=== PATIENT | male | born 1960 | race African-American/Black ===

== ENCOUNTER → 2016-12-11 | Outpatient (CLI) | payer MEDICAID | LOC: RAD 13:22 | PROVIDERS: ATTEND Internal Medicine Medical Oncology | DX: C34.91 Malignant neoplasm of unspecified part of right bronchus or lung (principal) | CPT/HCPCS: 71260 ==

== ENCOUNTER → 2017-01-28 | Outpatient (CLI) | payer MEDICAID | LOC: RAD 08:02 | PROVIDERS: ATTEND Internal Medicine Medical Oncology | DX: C34.91 Malignant neoplasm of unspecified part of right bronchus or lung (principal) | CPT/HCPCS: 71020 ==

== ENCOUNTER → 2017-02-04 | Outpatient (CLI) | payer MEDICAID | LOC: SP 13:14 | PROVIDERS: ATTEND Internal Medicine Medical Oncology | DX: M79.601 Pain in right arm (principal); M25.421 Effusion, right elbow | CPT/HCPCS: 93971 ==

== ENCOUNTER 2017-03-04 11:49 | Inpatient (IN) | payer MEDICAID ==
--- NOTE | 2017-03-04 13:59 | ER Document Report ---
ED Medical Screen (RME) - General Chief Complaint: Hand Swelling Stated Complaint: RIGHT HAND/ARM SWELLING Mode of Arrival: Wheelchair Information source: Patient, Relative TRAVEL OUTSIDE OF THE [place] IN LAST 30 DAYS: No - HPI Onset: Other - 1 month, worse 2 d ago Onset/Duration: Gradual Quality of pain: Achy Severity: Moderate Associated Symptoms: denies: Chills, Fever Exacerbated by: Denies Relieved by: Denies Similar symptoms previously: No Recently seen / treated by doctor: Yes - dr. chase, today - Related Data Smoking: Cigarettes Frequency of alcohol use: None Drug Abuse: None Allergies/Adverse Reactions: Penicillins Adverse Reaction (Verified 03/04/17 12:23) Past Medical History - General Information source: Patient, Relative - Social History Cigarette use (# per day): Yes Chew tobacco use (# tins/day): No Frequency of alcohol use: None Drug Abuse: None Lives with: Family Family history: Reviewed & Not Pertinent - Past Medical History Cardiac Medical History: Reports: Hx Hypertension Denies: Hx Coronary Artery Disease, Hx Heart Attack Pulmonary Medical History: Reports: Hx Bronchitis, Hx COPD Denies: Hx Asthma, Hx Pneumonia Neurological Medical History: Denies: Hx Cerebrovascular Accident, Hx Seizures Renal/ Medical History: Denies: Hx Benign Prostatic Hyperplasia, Hx End Stage Renal Disease, Hx Kidney Stones, Hx Peritoneal Dialysis Malignancy Medical History: Reports Hx Lung Cancer GI Medical History: Reports: Hx Gastroesophageal Reflux Disease. Denies: Hx Cirrhosis, Hx Ulcer Musculoskeltal Medical History: Reports Hx Arthritis, Denies Hx Multiple Sclerosis, Reports Hx Musculoskeletal Trauma Psychiatric Medical History: Denies: Hx Bipolar Disorder, Hx Depression, Hx Schizophrenia - Immunizations Hx Diphtheria, Pertussis, Tetanus Vaccination: No Review of Systems - Review of Systems Constitutional: Weakness EENT: No symptoms reported Cardiovascular: No symptoms reported, Edema Respiratory: Cough, Short of breath Gastrointestinal: No symptoms reported Musculoskeletal: No symptoms reported Skin: No symptoms reported Neurological/Psychological: No symptoms reported Physical Exam - Vital signs Vitals: Temp Pulse Resp BP Pulse Ox 97.6 F 131 H 20 126/74 H 96 03/04/17 12:26 03/04/17 12:26 03/04/17 12:26 03/04/17 12:26 03/04/17 12:26 Interpretation: Tachycardic. No: Tachypneic, Febrile - Extremities General upper extremity: No: Normal inspection - moderate edema r. upper extrem. Course - Vital Signs Vital signs: Temp Pulse Resp BP Pulse Ox 97.6 F 131 H 20 126/74 H 96 03/04/17 12:26 03/04/17 12:26 03/04/17 12:26 03/04/17 12:26 03/04/17 12:26
[2017-03-04 14:36] LABS: ABSOLUTE LYMPHOCYTES (AUTO) 0.5 10^3/uL (0.5-4.7); ABSOLUTE MONOCYTES (AUTO) 0.6 10^3/uL (0.1-1.4); BASOPHILS % (AUTO) 0.3 % (0-2); HEMATOCRIT 24.8 % (37.9-51.0); HEMOGLOBIN 8.4 g/dL (13.5-17.0); HGB HCT DIFFERENCE 0.4; LYMPHOCYTES % (AUTO) 6.9 % (13-45); MEAN CORPUSCULAR HEMOGLOBIN 30.7 pg (27.0-33.4); MEAN CORPUSCULAR HGB CONC 33.8 g/dL (32.0-36.0); MEAN CORPUSCULAR VOLUME 91 fl (80-97); RED BLOOD COUNT 2.73 10^6/uL (4.35-5.55); RED CELL DISTRIBUTION WIDTH 21.2 % (11.5-14.0); SEGMENTED NEUTROPHILS % (AUTO) 83.8 % (42-78); WHITE BLOOD COUNT 7.1 10^3/uL (4.0-10.5)
[2017-03-04 14:54] LABS: ALANINE AMINOTRANSFERASE 34 U/L (21-72); ALBUMIN 2.5 g/dL (3.5-5.0); ALKALINE PHOSPHATASE 152 U/L (38-126); ANION GAP 11 (5-19); ASPARTATE AMINO TRANSFERASE 38 U/L (17-59); BILIRUBIN,DIRECT 0.5 mg/dL (0.0-0.4); BILIRUBIN,TOTAL 1.2 mg/dL (0.2-1.3); BLOOD UREA NITROGEN 17 mg/dL (7-20); CALCIUM 9.8 mg/dL (8.4-10.2); CARBON DIOXIDE 15 mmol/L (22-30); CHLORIDE 109 mmol/L (98-107); CREATININE RESULT 1.27 mg/dL (0.52-1.25); GLUCOSE 112 mg/dL (75-110); POTASSIUM 3.6 mmol/L (3.6-5.0); SODIUM 135.3 mmol/L (137-145)
--- NOTE | 2017-03-04 17:03 | ER Document Report ---
ED General - General Chief Complaint: Hand Swelling Stated Complaint: RIGHT HAND/ARM SWELLING Mode of Arrival: Wheelchair Information source: Patient, [facility] Records Notes: This is a 56-year-old -[place] male with a history of lung CA undergoing chemotherapy who was sent from Dr. Chris's office today for evaluation of BUE swelling, R>L for the past 2 weeks, worse today, concern for possible DVT. No fevers, chills. Productive cough which is chronic. Pt continues to smoke daily. TRAVEL OUTSIDE OF THE [place] IN LAST 30 DAYS: No - Related Data Allergies/Adverse Reactions: Penicillins Adverse Reaction (Verified 03/04/17 12:23) Home Medications: Current Home Medications Folic Acid [Folvite 1 mg Tablet] 1 mg PO DAILY 03/04/17 [History] Morphine Sulfate [Morphine Sulfate ER] 15 mg PO BID 03/04/17 [History] Oxycodone HCl [Oxy-Ir 5 mg Tablet] 5 mg PO TIDP PRN 03/04/17 [History] Past Medical History - General Information source: Patient, Relative - Social History Smoking Status: Current Every Day Smoker Cigarette use (# per day): Yes Chew tobacco use (# tins/day): No Frequency of alcohol use: None Drug Abuse: None Lives with: Family Family History: Malignancy Patient has suicidal ideation: No Patient has homicidal ideation: No - Past Medical History Cardiac Medical History: Reports: Hx Hypertension Denies: Hx Coronary Artery Disease, Hx Heart Attack Pulmonary Medical History: Reports: Hx Bronchitis, Hx COPD Denies: Hx Asthma, Hx Pneumonia Neurological Medical History: Denies: Hx Cerebrovascular Accident, Hx Seizures Renal/ Medical History: Denies: Hx Benign Prostatic Hyperplasia, Hx End Stage Renal Disease, Hx Kidney Stones, Hx Peritoneal Dialysis Malignancy Medical History: Reports Hx Lung Cancer GI Medical History: Reports: Hx Gastroesophageal Reflux Disease. Denies: Hx Cirrhosis, Hx Ulcer Musculoskeltal Medical History: Reports Hx Arthritis, Denies Hx Multiple Sclerosis, Reports Hx Musculoskeletal Trauma Psychiatric Medical History: Denies: Hx Bipolar Disorder, Hx Depression, Hx Schizophrenia - Immunizations Hx Diphtheria, Pertussis, Tetanus Vaccination: No Review of Systems - Review of Systems Notes: REVIEW OF SYSTEMS: CONSTITUTIONAL : Denies fever, chills, or sweats. Denies recent illness. EENT: Denies eye, ear, throat, or mouth pain or symptoms. Denies nasal or sinus congestion. CARDIOVASCULAR: Denies chest pain. RESPIRATORY: Cough and congestion GASTROINTESTINAL: Denies abdominal pain. Denies nausea, vomiting, or diarrhea. GENITOURINARY: Denies difficulty urinating, painful urination, burning, frequency, or blood in urine. MUSCULOSKELETAL: Denies neck or back pain or joint pain or swelling. Upper extremity swelling as per history of present illness SKIN: Denies rash or skin lesions. HEMATOLOGIC : Denies easy bruising or bleeding. LYMPHATIC: Denies swollen, enlarged glands. NEUROLOGICAL: Denies altered mental status or loss of consciousness. Denies headache. PSYCHIATRIC: Denies anxiety or stress or depression. ALL OTHER SYSTEMS REVIEWED AND NEGATIVE. Physical Exam - Vital signs Vitals: Temp Pulse Resp BP Pulse Ox 97.6 F 131 H 20 126/74 H 96 03/04/17 12:26 03/04/17 12:26 03/04/17 12:26 03/04/17 12:26 03/04/17 12:26 - Notes Notes: PHYSICAL EXAMINATION: GENERAL: Thin, frail gentleman who appears much older than stated age. He is alert and conversant and in no acute distress. HEAD: Atraumatic, normocephalic. EYES: Pupils equal round and reactive to light, extraocular movements intact ENT: nares patent, oropharynx clear without exudates. Moist mucous membranes. NECK: Normal range of motion, supple without lymphadenopathy LUNGS: Decreased breath sounds in right base. No wheezes rales or rhonchi. HEART: Tachycardic rate, regular rhythm without murmur appreciated ABDOMEN: Soft, nontender, normoactive bowel sounds. No guarding, no rebound. No masses appreciated. EXTREMITIES: 3+ pitting edema noted to the right upper extremity which patient states has been present for 3 weeks. Pulses intact. Left upper extremity with very minimal edema to the forearm. Pulses intact. Bilateral lower extremities with 2+ pitting edema NEUROLOGICAL: Cranial nerves grossly intact. Normal speech. No gross focal motor sensory deficit appreciated PSYCH: Normal mood, normal affect. SKIN: Warm, Dry, normal turgor, no rashes or lesions noted. Course - Re-evaluation Re-evalutation: 03/04/17 18:[address] Chris, will initiate lovenox therapy and discuss admission with hospitalist for upper extremity DVT - Vital Signs Vital signs: Temp Pulse Resp BP Pulse Ox 97.6 F 127 H 20 102/56 L 94 03/04/17 12:26 03/04/17 16:58 03/04/17 17:06 03/04/17 16:58 03/04/17 16:58 - Laboratory Result Diagrams: 03/04/17 14:05 03/04/17 14:05 Laboratory results interpreted by me: 03/04/17 03/04/17 03/04/17 14:05 14:05 14:05 RBC 2.73 L Hgb 8.4 L Hct 24.8 L RDW 21.2 H Plt Count 103 L Seg Neutrophils % 83.8 H Lymphocytes % 6.9 L D-Dimer 1.33 H Sodium 135.3 L Chloride 109 H Carbon Dioxide 15 L Creatinine 1.27 H Est GFR (Non-Af Amer) 59 L Glucose 112 H Direct Bilirubin 0.5 H Alkaline Phosphatase 152 H Total Protein 5.0 L Albumin 2.5 L Discharge - Discharge Clinical Impression: Pleural effusion, right Left upper extremity deep vein thrombosis Qualifiers: Affected thrombotic vein of extremity: axillary Chronicity: acute Qualified Code(s): I82.A12 - Acute embolism and thrombosis of left axillary vein Lung cancer Qualifiers: Laterality: unspecified laterality Lung location: unspecified part of lung Qualified Code(s): C34.90 - Malignant neoplasm of unspecified part of unspecified bronchus or lung Admitting Provider: Hospitalist - Dr. Torres Unit Admitted: Telemetry
[2017-03-04] MEDS: ENOXAPARIN SODIUM INJ 60 MG/0.6 ML DISP.SYRIN SUBCUT SCH (19:43)
[2017-03-04] MEDS ORDERED: HYDRALAZINE HCL INJ/PF 20 MG/1 ML SDV IV PRN (19:44)
[2017-03-04] MEDS ORDERED: IPRATROPIUM/ALBUTEROL 0.5-2.5 MG/3 ML AMPUL NEB PRN (19:44)
[2017-03-04] MEDS ORDERED: ACETAMINOPHEN 325 MG TABLET PO PRN (19:44)
[2017-03-04] MEDS ORDERED: ONDANSETRON HCL INJ/PF 4 MG/2 ML SDV IV PRN (19:44)
[2017-03-04] MEDS: IPRATROPIUM/ALBUTEROL 0.5-2.5 MG/3 ML AMPUL NEB SCH (22:13)
--- NOTE | 2017-03-04 22:22 | PDOC H&P ---
History of Present Illness Admission Date/PCP: 03/04/17 19:44 Patient complains of: Right hand swelling and pain History of Present Illness: ИРИНА CAMACHO is a 56 year old male with a past medical history of lung cancer with metastasis and persistent Tobacco Dependence undergoing chemotherapy with Dr. Chris, who is seen today noted to have marketed right arm swelling concern for DVT is referred to the emergency room for evaluation where venous Doppler verifies extensive deep vein thrombosis of left subclavian and a brachialis vein involvement with Port-A-Cath. He started on Lovenox and referred to the hospitalist for admission. Denying chest pain shortness of breath nausea vomiting. Past Medical History Cardiac Medical History: Reports: Hypertension Denies: Coronary Artery Disease, Myocardial Infarction Pulmonary Medical History: Reports: Bronchitis, Chronic Obstructive Pulmonary Disease (COPD) Denies: Asthma, Pneumonia Neurological Medical History: Denies: Seizures Renal/ Medical History: Denies: End Stage Renal Disease Malignancy Medical History: Reports: Lung Cancer GI Medical History: Reports: Gastroesophageal Reflux Disease Denies: Cirrhosis Musculoskeltal Medical History: Reports: Arthritis Psychiatric Medical History: Reports: Tobacco Dependency Denies: Bipolar Disorder, Depression Hematology: Reports: Anemia, Bleeding Tendencies Social History Information Source: Patient Lives with: Family Smoking Status: Current Every Day Smoker Cigarettes Packs Per Day: 1 Frequency of Alcohol Use: Rare Hx Recreational Drug Use: No Drugs: Marijuana Hx Prescription Drug Abuse: No - Advance Directive Resuscitation Status: Do Not Resuscitate Family History Family History: Malignancy Parental Family History Reviewed: Yes Children Family History Reviewed: Yes Sibling(s) Family History Reviewed.: Yes Medication/Allergy Home Medications: Folic Acid [Folvite 1 mg Tablet] 1 mg PO DAILY 03/04/17 Morphine Sulfate [Morphine Sulfate ER] 15 mg PO BID 03/04/17 Oxycodone HCl [Oxy-Ir 5 mg Tablet] 5 mg PO TIDP PRN 03/04/17 Allergies/Adverse Reactions: Penicillins Adverse Reaction (Verified 03/04/17 12:23) Review of Systems Constitutional: PRESENT: anorexia, fatigue, weakness, weight loss, other - Chronically ill-appearing with cachexia and temporal wasting. ABSENT: chills, fever(s) Eyes: ABSENT: visual disturbances Ears: ABSENT: hearing changes Cardiovascular: ABSENT: chest pain, dyspnea on exertion, edema, orthropnea, palpitations Respiratory: PRESENT: cough, dyspnea. ABSENT: hemoptysis, sputum Gastrointestinal: PRESENT: constipation, nausea. ABSENT: abdominal pain, diarrhea, hematemesis, hematochezia, vomiting Genitourinary: ABSENT: dysuria, hematuria Musculoskeletal: ABSENT: joint swelling Integumentary: ABSENT: rash, wounds Neurological: PRESENT: confusion, memory loss, weakness. ABSENT: abnormal gait , abnormal speech, dizziness, focal weakness, syncope Psychiatric: ABSENT: anxiety, depression, homidical ideation, suicidal ideation Endocrine: ABSENT: cold intolerance, heat intolerance, polydipsia, polyuria Hematologic/Lymphatic: ABSENT: easy bleeding, easy bruising Physical Exam Vital Signs: Temp Pulse Resp BP Pulse Ox 97.6 F 127 H 20 102/56 L 94 03/04/17 12:26 03/04/17 16:58 03/04/17 17:06 03/04/17 16:58 03/04/17 16:58 General appearance: PRESENT: cooperative, disheveled, mild distress, thin, other - Cachexia with temporal wasting Head exam: PRESENT: atraumatic, normocephalic Eye exam: PRESENT: conjunctiva pink, EOMI, PERRLA. ABSENT: scleral icterus Ear exam: PRESENT: normal external ear exam Mouth exam: PRESENT: moist, tongue midline Neck exam: ABSENT: carotid bruit, JVD, lymphadenopathy, thyromegaly Respiratory exam: PRESENT: accessory muscle use, crackles, decreased breath sounds, prolonged expiratory phas, tachypnea. ABSENT: rales, rhonchi, wheezes Cardiovascular exam: PRESENT: RRR. ABSENT: diastolic murmur, rubs, systolic murmur Pulses: PRESENT: normal dorsalis pedis pul Vascular exam: PRESENT: normal capillary refill GI/Abdominal exam: PRESENT: hypoactive bowel sounds, normal bowel sounds, soft. ABSENT: distended, guarding, mass, organolmegaly, rebound, tenderness Rectal exam: PRESENT: deferred Extremities exam: PRESENT: full ROM. ABSENT: calf tenderness, clubbing, pedal edema Neurological exam: PRESENT: alert, awake, oriented to person, oriented to place , oriented to situation, CN II-XII grossly intact. ABSENT: motor sensory deficit Psychiatric exam: PRESENT: flat affect. ABSENT: homicidal ideation, suicidal ideation Skin exam: PRESENT: dry, intact, warm. ABSENT: cyanosis, rash Results Impressions: Chest X-Ray 03/04/17 14:00 IMPRESSION: NUMEROUS PULMONARY NODULES CONSISTENT WITH METASTASES. INTERVAL DEVELOPMENT OF A MODERATE RIGHT PLEURAL EFFUSION. RIGHT HILAR MASS HAS ALSO INCREASED IN SIZE. Venous Doppler Study 03/04/17 16:51 IMPRESSION: The exam is Positive for partial deep vein thrombosis in the left subclavian, axillary, and 1 of 2 proximal brachial veins following the course of the port line. Color flow is not seen in the axillary segment but is demonstrated in the remaining segments. The left IJ is widely patent. No right -sided upper extremity DVT. Assessment & Plan - Diagnosis (1) Left upper extremity deep vein thrombosis Qualifiers: Affected thrombotic vein of extremity: axillary Chronicity: acute Qualified Code(s): I82.A12 - Acute embolism and thrombosis of left axillary vein Is this a current diagnosis for this admission?: YesPlan: Most likely secondary to malignancy he is placed on Lovenox will obtain oncology consultation (2) Thrombocytopenia Is this a current diagnosis for this admission?: YesPlan: Likely secondary to malignancy reevaluate CBC (3) Lung cancer Qualifiers: Laterality: unspecified laterality Lung location: unspecified part of lung Qualified Code(s): C34.90 - Malignant neoplasm of unspecified part of unspecified bronchus or lung Is this a current diagnosis for this admission?: YesPlan: Chest x-ray is notable for widespread metastasis and increasing size to the right mediastinal mass, symptomatic management and oncology consultation (4) Pleural effusion, right Is this a current diagnosis for this admission?: YesPlan: Most likely secondary to malignancy consider follow-up imaging versus hospice - Time Time Spent: 30 to 50 Minutes
[2017-03-05] MEDS: MORPHINE SULFATE SR 15 MG TABLET PO SCH ×3 (00:12→21:42)
[2017-03-05] MEDS: IPRATROPIUM/ALBUTEROL 0.5-2.5 MG/3 ML AMPUL NEB SCH ×2 (02:30→08:31)
[2017-03-05 05:03] LABS: ANION GAP 9 (5-19); BLOOD UREA NITROGEN 16 mg/dL (7-20); CALCIUM 9.1 mg/dL (8.4-10.2); CARBON DIOXIDE 18 mmol/L (22-30); CHLORIDE 108 mmol/L (98-107); GLUCOSE 99 mg/dL (75-110); POTASSIUM 3.1 mmol/L (3.6-5.0); SODIUM 135.2 mmol/L (137-145)
[2017-03-05] MEDS: POTASSI CL 20 MEQ/50 ML RIDER 20 MEQ/50 ML RTUPB IV SCH ×2 (08:25→11:24)
[2017-03-05] MEDS: DOCUSATE SODIUM 100 MG CAPSULE PO SCH ×2 (10:10→18:09)
[2017-03-05] MEDS: FOLIC ACID 1 MG TABLET PO SCH (10:10)
[2017-03-05] MEDS: ENOXAPARIN SODIUM INJ 60 MG/0.6 ML DISP.SYRIN SUBCUT SCH ×2 (10:11→21:42)
[2017-03-05] MEDS: AMLODIPINE BESYLATE 5 MG TABLET PO SCH (10:12)
[2017-03-05] MEDS: LACTULOSE SYRUP 20 GM/30 ML UDCUP PO SCH (10:12)
[2017-03-05] MEDS: GABAPENTIN 300 MG CAPSULE PO SCH (10:12)
--- NOTE | 2017-03-05 15:09 | PDOC PROGRESS REPORT ---
Subjective Progress Note for:: 03/05/17 Subjective:: The patient was seen earlier today on rounds. The patient does complain of swelling in his bilateral lower extremities. Did discuss findings of malnutrition with the patient. Overall the patient's arm pain has improved. The patient denies any nausea, vomiting, diarrhea, shortness of breath, dizziness, chest pain, heart palpitations, fevers, or chills. The patient has remained afebrile. Blood pressures have been in a good range. When prompted the patient voices no other concerns at this time. Review of systems: The rest of the review of systems is negative. Brief history: Mr. Mendez a 56-year-old -British male with a past medical history of metastatic lung cancer. The patient presented with swelling of the left upper extremity was found to have DVT. Dr. Haris Mendez was consult from the ER and the patient was admitted for management. Physical Exam Vital Signs: Temp Pulse Resp BP Pulse Ox 99.0 F 126 H 17 115/62 96 03/05/17 11:17 03/05/17 11:17 03/05/17 11:17 03/05/17 11:17 03/05/17 11:17 Intake & Output 03/03/17 03/04/17 03/05/17 23:59 23:59 23:59 Intake Total 505 Output Total 200 200 Balance -200 305 Weight 55.8 kg 55.8 kg General appearance: PRESENT: no acute distress, cooperative, thin, well- developed Exam: Frail, chronically ill-appearing Head exam: PRESENT: atraumatic, normocephalic Eye exam: PRESENT: conjunctiva pink, EOMI, PERRLA. ABSENT: scleral icterus Ear exam: PRESENT: normal external ear exam Mouth exam: PRESENT: moist, tongue midline Neck exam: ABSENT: carotid bruit, JVD, lymphadenopathy, thyromegaly Respiratory exam: PRESENT: clear to auscultation kwame, symmetrical, unlabored. ABSENT: rales, rhonchi, tachypnea, wheezes Cardiovascular exam: PRESENT: RRR. ABSENT: diastolic murmur, rubs, systolic murmur Pulses: PRESENT: normal dorsalis pedis pul Vascular exam: PRESENT: normal capillary refill GI/Abdominal exam: PRESENT: normal bowel sounds, soft. ABSENT: distended, guarding, mass, organolmegaly, rebound, tenderness Rectal exam: PRESENT: deferred Extremities exam: PRESENT: full ROM, pedal edema, +2 edema. ABSENT: calf tenderness, clubbing Neurological exam: PRESENT: alert, awake, oriented to person, oriented to place , oriented to time, oriented to situation, CN II-XII grossly intact. ABSENT: motor sensory deficit Psychiatric exam: PRESENT: appropriate affect, normal mood. ABSENT: homicidal ideation, suicidal ideation Skin exam: PRESENT: dry, intact, warm. ABSENT: cyanosis, rash Results Laboratory Results: 03/05/17 03:56 03/05/17 03:56 Sodium 135.2 L Potassium 3.1 L Chloride 108 H Carbon Dioxide 18 L Anion Gap 9 BUN 16 Creatinine 1.20 Est GFR ( Amer) > 60 Est GFR (Non-Af Amer) > 60 Glucose 99 Calcium 9.1 Impressions: Chest X-Ray 03/04/17 14:00 IMPRESSION: NUMEROUS PULMONARY NODULES CONSISTENT WITH METASTASES. INTERVAL DEVELOPMENT OF A MODERATE RIGHT PLEURAL EFFUSION. RIGHT HILAR MASS HAS ALSO INCREASED IN SIZE. Venous Doppler Study 03/04/17 16:51 IMPRESSION: The exam is Positive for partial deep vein thrombosis in the left subclavian, axillary, and 1 of 2 proximal brachial veins following the course of the port line. Color flow is not seen in the axillary segment but is demonstrated in the remaining segments. The left IJ is widely patent. No right -sided upper extremity DVT. Assessment & Plan - Diagnosis (1) Left upper extremity deep vein thrombosis Qualifiers: Affected thrombotic vein of extremity: axillary Chronicity: acute Qualified Code(s): I82.A12 - Acute embolism and thrombosis of left axillary vein Is this a current diagnosis for this admission?: YesPlan: Will continue Lovenox. Do appreciate Dr. michelle high input with this. (2) Metastatic lung cancer (metastasis from lung to other site) Qualifiers: Laterality: unspecified laterality Qualified Code(s): C34.90 - Malignant neoplasm of unspecified part of unspecified bronchus or lung Is this a current diagnosis for this admission?: YesPlan: Management as per oncology (3) Pleural effusion, right Is this a current diagnosis for this admission?: Yes (4) Thrombocytopenia Is this a current diagnosis for this admission?: YesPlan: Will continue to monitor - Time Time Spent with patient: 25-34 minutes Medications reviewed and adjusted accordingly: Yes Anticipated discharge: Home Within: within 24 hours Disposition: The patient is a DO NOT RESUSCITATE DO NOT INTUBATE. Pending patient's symptomatology and diagnostic findings will reevaluate as needed.
[2017-03-05] MEDS ORDERED: DILTIAZEM HCL INJ 25 MG/5 ML VIAL ONE (23:03)
[2017-03-05] MEDS ORDERED: NORMAL SALINE 1000 ML 500 ML IV ONE ×2 (23:05→23:37)
[2017-03-05] MEDS ORDERED: DILTIAZEM HCL INJ 25 MG/5 ML VIAL IV ONE ×2 (23:19→23:30)
[2017-03-05] MEDS ORDERED: DILTIAZEM HCL/D5W 125 ML IV PRN (23:35)
[2017-03-05] MEDS ORDERED: DILTIAZEM HCL/D5W 125 MG/125 ML RTUINJ IV ONE (23:37)
[2017-03-06] MEDS ORDERED: DILTIAZEM HCL INJ 25 MG/5 ML VIAL IV ONE ×2 (00:39→06:30)
[2017-03-06] MEDS ORDERED: NORMAL SALINE 1000 ML 1,000 ML IV ONE (00:39)
[2017-03-06] MEDS ORDERED: DILTIAZEM HCL INJ 25 MG/5 ML VIAL ONE (00:41)
[2017-03-06 02:41] LABS: ABSOLUTE LYMPHOCYTES (AUTO) 0.4 10^3/uL (0.5-4.7); ABSOLUTE MONOCYTES (AUTO) 0.6 10^3/uL (0.1-1.4); ABSOLUTE NEUT (AUTO) 4.1 10^3/uL (1.7-8.2); BASOPHILS % (AUTO) 0.3 % (0-2); HEMATOCRIT 20.3 % (37.9-51.0); HGB HCT DIFFERENCE 0.1; LYMPHOCYTES % (AUTO) 8.5 % (13-45); MEAN CORPUSCULAR HEMOGLOBIN 30.1 pg (27.0-33.4); MEAN CORPUSCULAR HGB CONC 33.4 g/dL (32.0-36.0); MEAN CORPUSCULAR VOLUME 90 fl (80-97); MONOCYTES % (AUTO) 11.6 % (3-13); RED BLOOD COUNT 2.25 10^6/uL (4.35-5.55); RED CELL DISTRIBUTION WIDTH 21.4 % (11.5-14.0); SEGMENTED NEUTROPHILS % (AUTO) 79.6 % (42-78); WHITE BLOOD COUNT 5.2 10^3/uL (4.0-10.5)
[2017-03-06 02:50] LABS: ANION GAP 8 (5-19); BLOOD UREA NITROGEN 15 mg/dL (7-20); CALCIUM 8.7 mg/dL (8.4-10.2); CARBON DIOXIDE 18 mmol/L (22-30); CHLORIDE 110 mmol/L (98-107); CREATININE RESULT 1.15 mg/dL (0.52-1.25); GLUCOSE 104 mg/dL (75-110); POTASSIUM 3.4 mmol/L (3.6-5.0); SODIUM 136.3 mmol/L (137-145)
[2017-03-06 02:59] LABS: CREATINE KINASE < 20 U/L (55-170)
[2017-03-06 03:01] LABS: CREATINE KINASE MB < 0.22 ng/mL (<4.55); MAGNESIUM 1.1 mg/dL (1.6-2.3); TROPONIN I < 0.012 ng/mL
[2017-03-06 03:09] LABS: HEMOGLOBIN 6.8 g/dL (13.5-17.0)
[2017-03-06] MEDS ORDERED: NORMAL SALINE 250 ML IV PRN ×2 (03:24)
[2017-03-06] MEDS ORDERED: POTASSIUM CHLORIDE 20 MEQ/15 ML UDCUP PO ONE ×2 (03:25→05:30)
[2017-03-06] MEDS ORDERED: MAGNESIUM SULFATE/D5W 100 ML IV SCH (03:30)
[2017-03-06] MEDS ORDERED: DILTIAZEM HCL/D5W 125 ML IV PRN (09:07)
[2017-03-06] MEDS: DOCUSATE SODIUM 100 MG CAPSULE PO SCH ×2 (10:21→17:52)
[2017-03-06] MEDS: AMLODIPINE BESYLATE 5 MG TABLET PO SCH (10:21)
[2017-03-06] MEDS: GABAPENTIN 300 MG CAPSULE PO SCH (10:21)
[2017-03-06] MEDS: LACTULOSE SYRUP 20 GM/30 ML UDCUP PO SCH (10:21)
[2017-03-06] MEDS: MORPHINE SULFATE SR 15 MG TABLET PO SCH ×2 (10:25→22:19)
[2017-03-06] MEDS: FOLIC ACID 1 MG TABLET PO SCH (10:29)
[2017-03-06] MEDS: DILTIAZEM HCL 60 MG TABLET PO SCH ×2 (11:17→17:56)
[2017-03-06] MEDS: ENOXAPARIN SODIUM INJ 60 MG/0.6 ML DISP.SYRIN SUBCUT SCH ×2 (11:18→22:19)
[2017-03-06 12:09] LABS: ABSOLUTE BASOPHILS # (AUTO) 0.1 10^3/uL (0.0-0.2); ABSOLUTE LYMPHOCYTES (AUTO) 0.5 10^3/uL (0.5-4.7); ABSOLUTE MONOCYTES (AUTO) 0.7 10^3/uL (0.1-1.4); ABSOLUTE NEUT (AUTO) 4.7 10^3/uL (1.7-8.2); EOSINOPHILS % (AUTO) 0.4 % (0-6); HEMOGLOBIN 8.5 g/dL (13.5-17.0); HGB HCT DIFFERENCE 0.5; LYMPHOCYTES % (AUTO) 8.6 % (13-45); MEAN CORPUSCULAR HEMOGLOBIN 30.7 pg (27.0-33.4); MEAN CORPUSCULAR HGB CONC 34.1 g/dL (32.0-36.0); MEAN CORPUSCULAR VOLUME 90 fl (80-97); MONOCYTES % (AUTO) 12.4 % (3-13); RED BLOOD COUNT 2.78 10^6/uL (4.35-5.55); RED CELL DISTRIBUTION WIDTH 19.6 % (11.5-14.0); SEGMENTED NEUTROPHILS % (AUTO) 77.6 % (42-78)
--- NOTE | 2017-03-06 12:10 | Progress Note ---
Provider Note Provider Note: 03/05/2017: Shortly before 11 PM, I was contacted by patient's floor nurse, stating that pulse rate was into the 190 200+ range and irregular. Rapid response was called and I went to the patient's bedside shortly thereafter. Patient himself was resting quietly, with no chest pain and no outward complaints other than being mildly anxious. EKG revealed atrial fibrillation with rapid ventricular response. No prior history of same, either by discussion with patient or review of prior EKGs. Rate was gradually brought under control by combination of IV fluid boluses, Cardizem boluses, and Cardizem drip. 40 minutes critical care time spent in evaluation and management of patient, which included direct patient evaluation, chart review, multiple discussions with nursing staff, and entering of multiple orders into the electronic health record. In the director data management hours of March 06, labs returned; a bit of delay between lab ordering and results, due to a bit of difficulty obtaining blood sample. Multiple abnormalities noted, including hypomagnesemia, hypokalemia, and anemia. 3:25 AM, with patient's floor nurse listing by speaker phone, and with patient' s brother likewise it patient side, my being tied up with another patient that time and not able to go to the bedside, I recommended to patient that he have blood transfusion. Brother stated that actually he had been scheduled to receive transfusion at Dr. Joyce's office the afternoon of the , but patient had been sent to the emergency room instead. Patient and brother understand the risks associated with blood product transfusion to include, but not be limited to, transfusion reaction, which can be fatal, along with hepatitis and/or HIV viruses. Discussed in lay person's terms. Patient agrees to undergo transfusion of blood products if felt necessary. His conversation is lucid and appropriate.
--- NOTE | 2017-03-06 15:51 | PDOC PROGRESS REPORT ---
Subjective Progress Note for:: 03/06/17 Subjective:: Patient was seen on morning rounds. He is resting comfortably in bed. Denies any shortness of breath, dyspnea or chest pain. He states he does become dyspneic with minimal exertion now however. He denies nausea, vomiting or diarrhea. He complains of some mild pain in the right upper extremity from swelling. He denies any other complaints the present time. Physical Exam Vital Signs: Temp Pulse Resp BP Pulse Ox 98.2 F 99 20 93/44 L 96 03/06/17 07:50 03/06/17 14:00 03/06/17 09:56 03/06/17 12:00 03/06/17 09:56 Intake & Output 03/05/17 03/06/17 03/07/17 06:59 06:59 06:59 Intake Total 25 4053 418 Output Total 400 Balance -375 4053 418 Weight 55.8 kg 56.9 kg General appearance: PRESENT: no acute distress, thin, well-developed Head exam: PRESENT: atraumatic, normocephalic Eye exam: PRESENT: conjunctiva pink, EOMI, PERRLA. ABSENT: scleral icterus Ear exam: PRESENT: normal external ear exam Mouth exam: PRESENT: moist, tongue midline Neck exam: ABSENT: carotid bruit, JVD, lymphadenopathy, thyromegaly Respiratory exam: PRESENT: rhonchi, symmetrical, unlabored. ABSENT: rales, wheezes Cardiovascular exam: PRESENT: RRR. ABSENT: diastolic murmur, rubs, systolic murmur Pulses: PRESENT: normal dorsalis pedis pul Vascular exam: PRESENT: normal capillary refill GI/Abdominal exam: PRESENT: normal bowel sounds, soft. ABSENT: distended, guarding, mass, organolmegaly, rebound, tenderness Rectal exam: PRESENT: deferred Extremities exam: PRESENT: full ROM. ABSENT: calf tenderness, clubbing, pedal edema Neurological exam: PRESENT: alert, awake, oriented to person, oriented to place , oriented to time, oriented to situation, CN II-XII grossly intact. ABSENT: motor sensory deficit Psychiatric exam: PRESENT: appropriate affect, normal mood. ABSENT: homicidal ideation, suicidal ideation Skin exam: PRESENT: dry, intact, warm. ABSENT: cyanosis, rash Results Laboratory Results: 03/06/17 11:50 03/06/17 02:18 03/06/17 03/06/17 03/06/17 02:18 02:18 02:18 WBC 5.2 RBC 2.25 L Hgb 6.8 L Hct 20.3 L MCV 90 MCH 30.1 MCHC 33.4 RDW 21.4 H Plt Count 71 L Seg Neutrophils % 79.6 H Lymphocytes % 8.5 L Monocytes % 11.6 Eosinophils % 0.0 Basophils % 0.3 Absolute Neutrophils 4.1 Absolute Lymphocytes 0.4 L Absolute Monocytes 0.6 Absolute Eosinophils 0.0 Absolute Basophils 0.0 Sodium 136.3 L Potassium 3.4 L Chloride 110 H Carbon Dioxide 18 L Anion Gap 8 BUN 15 Creatinine 1.15 Est GFR ( Amer) > 60 Est GFR (Non-Af Amer) > 60 Glucose 104 Calcium 8.7 Magnesium 1.1 L* TSH 1.54 03/06/17 11:50 WBC 6.0 RBC 2.78 L Hgb 8.5 L Hct 25.0 L MCV 90 MCH 30.7 MCHC 34.1 RDW 19.6 H Plt Count 100 L Seg Neutrophils % 77.6 Lymphocytes % 8.6 L Monocytes % 12.4 Eosinophils % 0.4 Basophils % 1.0 Absolute Neutrophils 4.7 Absolute Lymphocytes 0.5 Absolute Monocytes 0.7 Absolute Eosinophils 0.0 Absolute Basophils 0.1 Sodium Potassium Chloride Carbon Dioxide Anion Gap BUN Creatinine Est GFR ( Amer) Est GFR (Non-Af Amer) Glucose Calcium Magnesium TSH 03/06/17 03/06/17 02:18 02:18 Creatine Kinase < 20 L CK-MB (CK-2) < 0.22 Troponin I < 0.012 Impressions: Chest X-Ray 03/04/17 14:00 IMPRESSION: NUMEROUS PULMONARY NODULES CONSISTENT WITH METASTASES. INTERVAL DEVELOPMENT OF A MODERATE RIGHT PLEURAL EFFUSION. RIGHT HILAR MASS HAS ALSO INCREASED IN SIZE. Venous Doppler Study 03/04/17 16:51 IMPRESSION: The exam is Positive for partial deep vein thrombosis in the left subclavian, axillary, and 1 of 2 proximal brachial veins following the course of the port line. Color flow is not seen in the axillary segment but is demonstrated in the remaining segments. The left IJ is widely patent. No right -sided upper extremity DVT. Assessment & Plan - Diagnosis (1) Left upper extremity deep vein thrombosis Qualifiers: Affected thrombotic vein of extremity: axillary Chronicity: acute Qualified Code(s): I82.A12 - Acute embolism and thrombosis of left axillary vein Is this a current diagnosis for this admission?: YesPlan: Patient with left upper extremity DVT. Presently on Lovenox. Awaiting oncology 's input regarding anticoagulation in a patient with stage IV lung cancer. (2) Atrial fibrillation with RVR Is this a current diagnosis for this admission?: YesPlan: Patient's now in sinus rhythm. Converted with IV Cardizem, will convert to oral Cardizem and d/c IV. (3) Metastatic lung cancer (metastasis from lung to other site) Qualifiers: Laterality: unspecified laterality Qualified Code(s): C34.90 - Malignant neoplasm of unspecified part of unspecified bronchus or lung Is this a current diagnosis for this admission?: YesPlan: Management per oncology (4) Thrombocytopenia Is this a current diagnosis for this admission?: YesPlan: Secondary to recent chemotherapy. Awaiting oncology's input regarding this and need for anticoagulation. (5) Anemia Qualifiers: Anemia type: unspecified type Qualified Code(s): D64.9 - Anemia, unspecified Is this a current diagnosis for this admission?: YesPlan: Patient has required transfusion of packed red blood cells. Will await Dr. Chris's input. (6) Pleural effusion, right Is this a current diagnosis for this admission?: YesPlan: Continue to observe most likely from malignancy. - Time Time Spent with patient: 25-34 minutes Critical Time spent with patient: 15-24 minutes Smoking Cessation Education: 3 to 10 minutes Medications reviewed and adjusted accordingly: Yes
[2017-03-06] MEDS: OXYCODONE HCL IR 5 MG TABLET PO PRN (17:59)
[2017-03-06 18:23] LABS: APPEARANCE,URINE CLEAR; BILIRUBIN,URINE NEGATIVE (NEGATIVE); GLUCOSE, URINE NEGATIVE (NEGATIVE); KETONES,URINE NEGATIVE (NEGATIVE); LEUKOCYTE ESTERASE,URINE NEGATIVE (NEGATIVE); NITRITE,URINE NEGATIVE (NEGATIVE); PROTEIN,URINE NEGATIVE (NEGATIVE); URINE SPECIFIC GRAVITY 1.009; UROBILINOGEN,URINE NEGATIVE mg/dL (<2.0)
--- NOTE | 2017-03-06 22:05 | EKG REPORT ---
SEVERITY:- ABNORMAL ECG - SINUS RHYTHM LOW VOLTAGE WITH RIGHT AXIS DEVIATION CONSIDER ANTERIOR INFARCT BORDERLINE T ABNORMALITIES, ANTERIOR LEADS : Confirmed by: Blessing Dickerson MD 06-Mar-2017 22:05:24
--- NOTE | 2017-03-06 22:05 | EKG REPORT ---
SEVERITY:- ABNORMAL ECG - ATRIAL FIBRILLATION WITH RAPID V-RATE BORDERLINE RIGHT AXIS DEVIATION LOW VOLTAGE IN FRONTAL LEADS : Confirmed by: Blessing Dickerson MD 06-Mar-2017 22:05:36
[2017-03-07] MEDS: DILTIAZEM HCL 60 MG TABLET PO SCH ×5 (00:47→23:25)
[2017-03-07] MEDS: OXYCODONE HCL IR 5 MG TABLET PO PRN (05:46)
[2017-03-07 07:02] LABS: ANION GAP 6 (5-19); BLOOD UREA NITROGEN 14 mg/dL (7-20); CALCIUM 9.6 mg/dL (8.4-10.2); CARBON DIOXIDE 19 mmol/L (22-30); CHLORIDE 109 mmol/L (98-107); GLUCOSE 93 mg/dL (75-110); MAGNESIUM 1.8 mg/dL (1.6-2.3); POTASSIUM 3.8 mmol/L (3.6-5.0)
[2017-03-07] MEDS: ENOXAPARIN SODIUM INJ 60 MG/0.6 ML DISP.SYRIN SUBCUT SCH ×2 (09:54→23:25)
[2017-03-07] MEDS: FOLIC ACID 1 MG TABLET PO SCH (09:57)
[2017-03-07] MEDS: MORPHINE SULFATE SR 15 MG TABLET PO SCH ×2 (09:59→23:24)
[2017-03-07] MEDS: AMLODIPINE BESYLATE 5 MG TABLET PO SCH (10:02)
[2017-03-07] MEDS: LACTULOSE SYRUP 20 GM/30 ML UDCUP PO SCH (10:02)
[2017-03-07] MEDS: DOCUSATE SODIUM 100 MG CAPSULE PO SCH ×2 (10:02→17:32)
[2017-03-07] MEDS: GABAPENTIN 300 MG CAPSULE PO SCH (10:02)
--- NOTE | 2017-03-07 14:07 | PDOC PROGRESS REPORT ---
Subjective Progress Note for:: 03/07/17 Subjective:: Patient was seen on morning rounds. He is resting comfortably in bed. Denies any shortness of breath, dyspnea or chest pain. He states he does become dyspneic with minimal exertion now however. He denies nausea, vomiting or diarrhea. He complains of some mild pain in the right upper extremity from swelling. He denies any other complaints the present time. Physical Exam Vital Signs: Temp Pulse Resp BP Pulse Ox 98.7 F 90 20 101/63 98 03/07/17 13:00 03/07/17 13:00 03/07/17 13:00 03/07/17 13:00 03/07/17 13:00 Intake & Output 03/06/17 03/07/17 03/08/17 06:59 06:59 06:59 Intake Total 4053 1168 Output Total 325 Balance 4053 843 Weight 56.9 kg 58.1 kg General appearance: PRESENT: no acute distress, thin, well-developed, well- nourished Head exam: PRESENT: atraumatic, normocephalic Eye exam: PRESENT: conjunctiva pink, EOMI, PERRLA. ABSENT: scleral icterus Ear exam: PRESENT: normal external ear exam Neck exam: ABSENT: carotid bruit, JVD, lymphadenopathy, thyromegaly Respiratory exam: PRESENT: rhonchi, symmetrical, unlabored. ABSENT: rales, wheezes Cardiovascular exam: PRESENT: RRR. ABSENT: diastolic murmur, rubs, systolic murmur Pulses: PRESENT: normal carotid pulses, normal radial pulses Vascular exam: PRESENT: normal capillary refill GI/Abdominal exam: PRESENT: normal bowel sounds, soft. ABSENT: distended, guarding, mass, organolmegaly, rebound, tenderness Rectal exam: PRESENT: deferred Extremities exam: PRESENT: full ROM, +1 edema - Right arm. left arm, +2 edema Musculoskeletal exam: PRESENT: full ROM Neurological exam: PRESENT: alert, awake, oriented to person, oriented to place , oriented to time, oriented to situation, CN II-XII grossly intact. ABSENT: motor sensory deficit Psychiatric exam: PRESENT: appropriate affect, normal mood. ABSENT: homicidal ideation, suicidal ideation Skin exam: PRESENT: dry, intact, warm. ABSENT: cyanosis, rash Results Laboratory Results: 03/06/17 11:50 03/07/17 05:43 03/06/17 03/07/17 18:00 05:43 Sodium 134.0 L Potassium 3.8 Chloride 109 H Carbon Dioxide 19 L Anion Gap 6 BUN 14 Creatinine 1.10 Est GFR ( Amer) > 60 Est GFR (Non-Af Amer) > 60 Glucose 93 Calcium 9.6 Magnesium 1.8 Urine Color YELLOW Urine Appearance CLEAR Urine pH 6.0 Ur Specific [place] 1.009 Urine Protein NEGATIVE Urine Glucose (UA) NEGATIVE Urine Ketones NEGATIVE Urine Blood SMALL H Urine Nitrite NEGATIVE Ur Leukocyte Esterase NEGATIVE Urine WBC (Auto) 0 Urine RBC (Auto) 1 03/06/17 03/06/17 02:18 02:18 Creatine Kinase < 20 L CK-MB (CK-2) < 0.22 Troponin I < 0.012 Impressions: Chest X-Ray 03/04/17 14:00 IMPRESSION: NUMEROUS PULMONARY NODULES CONSISTENT WITH METASTASES. INTERVAL DEVELOPMENT OF A MODERATE RIGHT PLEURAL EFFUSION. RIGHT HILAR MASS HAS ALSO INCREASED IN SIZE. Venous Doppler Study 03/04/17 16:51 IMPRESSION: The exam is Positive for partial deep vein thrombosis in the left subclavian, axillary, and 1 of 2 proximal brachial veins following the course of the port line. Color flow is not seen in the axillary segment but is demonstrated in the remaining segments. The left IJ is widely patent. No right -sided upper extremity DVT. Assessment & Plan - Diagnosis (1) Left upper extremity deep vein thrombosis Qualifiers: Affected thrombotic vein of extremity: axillary Chronicity: acute Qualified Code(s): I82.A12 - Acute embolism and thrombosis of left axillary vein Is this a current diagnosis for this admission?: YesPlan: Patient with left upper extremity DVT. Presently on Lovenox. Awaiting oncology 's input regarding anticoagulation in a patient with stage IV lung cancer. (2) Atrial fibrillation with RVR Is this a current diagnosis for this admission?: YesPlan: Patient's now in sinus rhythm. Converted with IV Cardizem, will convert to oral Cardizem and d/c IV. (3) Metastatic lung cancer (metastasis from lung to other site) Qualifiers: Laterality: unspecified laterality Qualified Code(s): C34.90 - Malignant neoplasm of unspecified part of unspecified bronchus or lung Is this a current diagnosis for this admission?: YesPlan: Management per oncology (4) Thrombocytopenia Is this a current diagnosis for this admission?: YesPlan: Secondary to recent chemotherapy. Awaiting oncology's input regarding this and need for anticoagulation. (5) Anemia Qualifiers: Anemia type: unspecified type Qualified Code(s): D64.9 - Anemia, unspecified Is this a current diagnosis for this admission?: YesPlan: Patient has required transfusion of packed red blood cells. Will await Dr. Chris's input. (6) Pleural effusion, right Is this a current diagnosis for this admission?: YesPlan: Continue to observe most likely from malignancy. - Time Time Spent with patient: 25-34 minutes Critical Time spent with patient: 15-24 minutes Smoking Cessation Education: 3 to 10 minutes Medications reviewed and adjusted accordingly: Yes
[2017-03-08] MEDS: DILTIAZEM HCL 60 MG TABLET PO SCH (05:31)
[2017-03-08] MEDS: FOLIC ACID 1 MG TABLET PO SCH (09:49)
[2017-03-08] MEDS: MORPHINE SULFATE SR 15 MG TABLET PO SCH (09:51)
[2017-03-08] MEDS: LACTULOSE SYRUP 20 GM/30 ML UDCUP PO SCH (09:53)
[2017-03-08] MEDS: DOCUSATE SODIUM 100 MG CAPSULE PO SCH (09:53)
[2017-03-08] MEDS: AMLODIPINE BESYLATE 5 MG TABLET PO SCH (09:53)
[2017-03-08] MEDS: GABAPENTIN 300 MG CAPSULE PO SCH (09:53)
[2017-03-08] MEDS ORDERED: MEGESTROL ACETATE 20 MG TABLET PO SCH (10:00)
[2017-03-08 10:26] VITALS: BP 114/64
--- NOTE | 2017-03-08 13:36 | PDOC DISCHARGE SUMMARY ---
General - Admit/Disc Date/PCP Admission Date/Primary Care Provider: 03/04/17 19:44 Discharge Date: 03/08/17 - Discharge Diagnosis (1) Left upper extremity deep vein thrombosis Is this a current diagnosis for this admission?: YesSummary: Discussed with , patient's oncologist, Xarelto would be a good option for anticoagulation for him (2) Atrial fibrillation with RVR Is this a current diagnosis for this admission?: YesSummary: Return in sinus rhythm with Cardizem. Patient remains in sinus rhythm since (3) Metastatic lung cancer (metastasis from lung to other site) Is this a current diagnosis for this admission?: YesSummary: He has had progression of disease despite aggressive chemotherapy. Dr. Chris , will discuss options of hospice with patient when she sees him on Saturday. (4) Thrombocytopenia Is this a current diagnosis for this admission?: YesSummary: Stable (5) Anemia Is this a current diagnosis for this admission?: YesSummary: He did require transfusion of 2 units packed cells while he was here he has had no active bleeding. (6) Pleural effusion, right Is this a current diagnosis for this admission?: YesSummary: Stable (8) Peripheral edema Is this a current diagnosis for this admission?: YesSummary: Patient is edematous in all extremities. He protein calorie malnutrition from advanced cancer. He is eating fairly well and drinking ensure supplements. - Additional Information Resuscitation Status: Do Not Resuscitate Discharge Activity: Activity As Tolerated, Balance Activity w/Rest Home Medications: Folic Acid [Folvite 1 mg Tablet] 1 mg PO DAILY 03/04/17 Morphine Sulfate [Morphine Sulfate ER] 15 mg PO BID 03/04/17 Oxycodone HCl [Oxy-Ir 5 mg Tablet] 5 mg PO TIDP PRN 03/04/17 Acetaminophen [Tylenol 325 mg Tablet] 650 mg PO Q6HP PRN tablet 03/08/17 Albuterol Sulfate [Proair Respiclick] 90 mcg IH Q4HP PRN #1 inhaler 03/08/17 Amlodipine Besylate [Norvasc 5 mg Tablet] 5 mg PO DAILY tablet 03/08/17 Diltiazem HCl [Diltiazem 24Hr ER] 240 mg PO DAILY #30 cap.sr.24h 03/08/17 Docusate Sodium [Colace 100 mg Capsule] 100 mg PO BID capsule 03/08/17 Rivaroxaban [Xarelto 15 mg Tablet] 15 mg PO BIDBS #40 tablet 03/08/17 Rivaroxaban [Xarelto] 20 mg PO DAILY #30 tablet 03/08/17 History of Present Illness Patient complains of: Right hand pain and swelling History of Present Illness: ИРИНА CAMACHO is a 56 year old male Physical Exam Vital Signs: Temp Pulse Resp BP Pulse Ox 98.4 F 88 19 114/64 96 03/08/17 10:23 03/08/17 10:23 03/08/17 10:23 03/08/17 10:23 03/08/17 10:23 Intake & Output 03/07/17 03/08/17 03/09/17 06:59 06:59 06:59 Intake Total 1168 1070 Output Total 325 975 Balance 843 95 Weight 58.1 kg 58.6 kg Results Laboratory Results: 03/06/17 11:50 03/07/17 05:43 03/06/17 03/06/17 02:18 02:18 Creatine Kinase < 20 L CK-MB (CK-2) < 0.22 Troponin I < 0.012 Impressions: Chest X-Ray 03/04/17 14:00 IMPRESSION: NUMEROUS PULMONARY NODULES CONSISTENT WITH METASTASES. INTERVAL DEVELOPMENT OF A MODERATE RIGHT PLEURAL EFFUSION. RIGHT HILAR MASS HAS ALSO INCREASED IN SIZE. Venous Doppler Study 03/04/17 16:51 IMPRESSION: The exam is Positive for partial deep vein thrombosis in the left subclavian, axillary, and 1 of 2 proximal brachial veins following the course of the port line. Color flow is not seen in the axillary segment but is demonstrated in the remaining segments. The left IJ is widely patent. No right -sided upper extremity DVT.
[2017-03-08] MEDS ORDERED: RIVAROXABAN 15 MG TABLET PO SCH (17:00)
== END 2017-03-08 10:56 | disposition home or self-care (01) | DRG 300 ==
LOC: ER 11:49 → EH 19:44 → UNDOADMIN 19:53 → EH 19:53 → 4N 21:24 → 3S 03-06 00:29
PROVIDERS: ADMIT Internal Medicine; ATTEND Internal Medicine
PROC: 3E0F73Z Introduction of Anti-inflammatory into Respiratory Tract, Via Natural or Artificial Opening (ICD-10-PCS; 2017-03-04)
PROC: 30233N1 Transfusion of Nonautologous Red Blood Cells into Peripheral Vein, Percutaneous Approach (ICD-10-PCS; principal; 2017-03-06)
DX: I82.A12 Acute embolism and thrombosis of left axillary vein (principal); C34.90 Malignant neoplasm of unspecified part of unspecified bronchus or lung; C79.9 Secondary malignant neoplasm of unspecified site; E46 Unspecified protein-calorie malnutrition; Z68.1 Body mass index [BMI] 19.9 or less, adult; D69.6 Thrombocytopenia, unspecified; I48.91 Unspecified atrial fibrillation; D64.9 Anemia, unspecified; Z66 Do not resuscitate; J44.9 Chronic obstructive pulmonary disease, unspecified; K21.9 Gastro-esophageal reflux disease without esophagitis; F17.210 Nicotine dependence, cigarettes, uncomplicated; M19.90 Unspecified osteoarthritis, unspecified site; I10 Essential (primary) hypertension; E83.42 Hypomagnesemia; E87.6 Hypokalemia; Z79.899 Other long term (current) drug therapy; Z88.0 Allergy status to penicillin; Z80.9 Family history of malignant neoplasm, unspecified
CPT/HCPCS: 36415; 36430; 71020; 80048; 80053; 81001; 82272; 82550; 82553; 83735; 84443; 84484; 85025; 85379; 86850; 86900; 86901; 86920; 93005; 93010; 93970; 99285; J1650; J3475; J3480; J3490; J7030; J7050; J7620; P9016

== ENCOUNTER 2017-03-15 12:44 | Emergency (ER) | payer MEDICAID ==
--- NOTE | 2017-03-15 13:27 | ER Document Report ---
ED Respiratory Problem - General Mode of Arrival: Ambulatory Information source: Patient TRAVEL OUTSIDE OF THE [place] IN LAST 30 DAYS: No - HPI Patient complains to provider of: Short of breath Onset: Last week Context: Other - see notes above Associated symptoms: Other - see notes above <MICHELLE SOLIS - Last Filed: 03/15/17 13:40> <DEVEN CH - Last Filed: 03/15/17 15:58> - General Chief Complaint: Breathing Difficulty Stated Complaint: SHORTNESS OF BREATH,EXTREMITY SWELLING Notes: 56 year old male with history of non-small cell lung cancer, COPD, bronchitis, and hypertension presents to the ED complaining of shortness of breath that started last week after leaving the hospital (03/04/2017). Patient was in the ED last week secondary to a left upper extremity DVT. Patient reports that his shortness of breath is not getting worse, but it isn't getting better either. Patient denies fever. Patient's primary care provider is Dr. Laws and oncologist is Dr. Baugh. (MICHELLE SOLIS) - Related Data Allergies/Adverse Reactions: Penicillins Adverse Reaction (Verified 03/04/17 12:23) Past Medical History - General Information source: Patient - Social History Smoking Status: Former Smoker Family History: Malignancy Patient has suicidal ideation: No Patient has homicidal ideation: No - Past Medical History Cardiac Medical History: Reports: Hx Atrial Fibrillation, Hx DVT - Left subclavian and brachialis vein, Hx Hypertension Pulmonary Medical History: Reports: Hx Bronchitis, Hx COPD Malignancy Medical History: Reports Hx Lung Cancer GI Medical History: Reports: Hx Gastroesophageal Reflux Disease Musculoskeltal Medical History: Reports Hx Arthritis, Reports Hx Musculoskeletal Trauma - Immunizations Hx Diphtheria, Pertussis, Tetanus Vaccination: No <MICHELLE SOLIS - Last Filed: 03/15/17 13:40> Review of Systems - Review of Systems Constitutional: See HPI, Recent illness - 03/04/2017 DVT left upper extremity. denies: Fever EENT: No symptoms reported Cardiovascular: No symptoms reported Respiratory: See HPI, Short of breath Gastrointestinal: No symptoms reported Genitourinary: No symptoms reported Male Genitourinary: No symptoms reported Musculoskeletal: No symptoms reported Skin: No symptoms reported Hematologic/Lymphatic: No symptoms reported Neurological/Psychological: No symptoms reported -: Yes All other systems reviewed and negative <MICHELLE SOLIS - Last Filed: 03/15/17 13:40> Physical Exam - General General appearance: Alert In distress: None - HEENT Head: Normocephalic, Atraumatic Eyes: Normal Extraocular movements intact: Yes Pupils: PERRL - Respiratory Respiratory status: No respiratory distress Breath sounds: Rhonchi, Wheezing. No: Normal - Cardiovascular Rhythm: Regular Heart sounds: Normal auscultation - Abdominal Inspection: Normal - Back Back: Normal - Extremities General upper extremity: Edema - bilateral upper extremities, Normal ROM. No: Normal inspection General lower extremity: Edema - bilateral lower extremities, Normal ROM. No: Normal inspection - Neurological Neuro grossly intact: Yes - Psychological Associated symptoms: Normal affect, Normal mood - Skin Skin Temperature: Warm Skin Moisture: Dry Skin Color: Normal <MICHELLE SOLIS - Last Filed: 03/15/17 13:40> Course <MICHELLE SOLIS - Last Filed: 03/15/17 13:40> - Laboratory Result Diagrams: 03/15/17 14:20 03/15/17 14:20 - Diagnostic Test Radiology reviewed: Image reviewed, Reports reviewed - Chest x-ray shows diffuse cannonball lesions, with a worsening large right upper lobe mass which has worsened since chest x-ray on 03/04/2017 despite being on chemotherapy. - EKG Interpretation by Me EKG shows normal: Sinus rhythm, [place], Intervals, QRS Complexes, ST-T Waves Rate: Tachycardia - 100 Voltage: Decreased voltage <DEVEN CH - Last Filed: 03/15/17 15:58> - Re-evaluation Re-evalutation: 03/15/17 15:20 The patient's chest x-ray has worsened in the last week. He is supposed to get another dose of chemotherapy in 1 week from today. He did follow up with his oncologist last Saturday on 03/11/2017 and they discussed hospice care. She wanted to try to more rounds of chemotherapy, and the family wanted to do that. The patient's pulse ox was 99% to 100% on room air. Advised him I did not think adding oxygen would make much difference. I also told him his sensation of being unable to breathe well may be related to the mass effect of the pleural effusion and the enlarging mass. He has been receiving chemotherapy and excess of 1 year, he reports initially it seemed to help. Given the progression seen on his chest x-ray in such a short amount of time despite chemotherapy, I do not see good reason for him to continue. I also told him that if his pleural effusion worsens, he would not be a candidate for paracentesis due to being on blood thinners for his recent DVT. He is advised to follow-up with his oncologist on Saturday or Saturday to discuss his options. (DEVEN CH) - Vital Signs Vital signs: Temp Pulse Resp BP Pulse Ox 98.7 F 110 H 22 H 98/56 L 99 03/15/17 12:49 03/15/17 12:49 03/15/17 15:37 03/15/17 15:37 03/15/17 15:37 - Laboratory Laboratory results interpreted by me: 03/15/17 03/15/17 14:20 14:20 RBC 2.58 L Hgb 8.3 L Hct 24.5 L RDW 24.0 H Seg Neutrophils % 79.8 H Lymphocytes % 8.4 L BUN 23 H Magnesium 1.5 L Alkaline Phosphatase 152 H Creatine Kinase < 20 L Total Protein 4.5 L Albumin 2.1 L Discharge <MICHELLE SOLIS - Last Filed: 03/15/17 13:40> <DEVEN CH - Last Filed: 03/15/17 15:58> - Discharge Clinical Impression: Mass of upper lobe of right lung, Pleural effusion, right Metastatic lung cancer (metastasis from lung to other site) Qualifiers: Laterality: unspecified laterality Qualified Code(s): C34.90 - Malignant neoplasm of unspecified part of unspecified bronchus or lung DVT (deep venous thrombosis) Qualifiers: DVT location: upper extremity Affected thrombotic vein of extremity: brachial Laterality: left Chronicity: acute Qualified Code(s): I82.622 - Acute embolism and thrombosis of deep veins of left upper extremity Dyspnea Qualifiers: Dyspnea type: unspecified Qualified Code(s): R06.00 - Dyspnea, unspecified Anemia Qualifiers: Anemia type: unspecified type Qualified Code(s): D64.9 - Anemia, unspecified Condition: Stable Disposition: HOME, SELF-CARE Additional Instructions: Your chest x-ray today shows worsening of the right lung mass and pleural effusion. Your oxygen levels on room air have remained at 100%. Your sensation of breathing difficulty is probably related to the enlarging lung mass and pleural effusion. Continue your regular medications. Follow-up with Dr. Baugh on Saturday or Saturday. RETURN TO THE EMERGENCY ROOM IF ANY NEW OR WORSENING SYMPTOMS. Referrals: ISAK BAUGH MD [ACTIVE STAFF] - Follow up in 3-5 days KRISTEN ANNE MD [Primary Care Provider] - Follow up in 3-5 days Scribe Attestation: 03/15/17 15:27 I personally performed the services described in the documentation, reviewed and edited the documentation which was dictated to the scribe in my presence, and it accurately records my words and actions. (DEEVN CH) Scribe Documentation - Scribe Written by Reny:: Reny Cash, 03/15/2017 1330 acting as scribe for :: Marlene <MICHELLE SOLIS - Last Filed: 03/15/17 13:40>
[2017-03-15] MEDS ORDERED: IPRATROPIUM/ALBUTEROL 0.5-2.5 MG/3 ML AMPUL NEB ONE (13:43)
[2017-03-15 14:39] LABS: ABSOLUTE LYMPHOCYTES (AUTO) 0.5 10^3/uL (0.5-4.7); ABSOLUTE MONOCYTES (AUTO) 0.7 10^3/uL (0.1-1.4); ABSOLUTE NEUT (AUTO) 4.7 10^3/uL (1.7-8.2); BASOPHILS % (AUTO) 0.4 % (0-2); EOSINOPHILS % (AUTO) 0.1 % (0-6); HEMATOCRIT 24.5 % (37.9-51.0); HEMOGLOBIN 8.3 g/dL (13.5-17.0); HGB HCT DIFFERENCE 0.4; LYMPHOCYTES % (AUTO) 8.4 % (13-45); MEAN CORPUSCULAR HEMOGLOBIN 32.2 pg (27.0-33.4); MEAN CORPUSCULAR HGB CONC 33.9 g/dL (32.0-36.0); MONOCYTES % (AUTO) 11.3 % (3-13); RED BLOOD COUNT 2.58 10^6/uL (4.35-5.55); SEGMENTED NEUTROPHILS % (AUTO) 79.8 % (42-78); WHITE BLOOD COUNT 5.9 10^3/uL (4.0-10.5)
[2017-03-15 14:48] LABS: MEAN CORPUSCULAR VOLUME 95 fl (80-97)
[2017-03-15 14:58] LABS: ALANINE AMINOTRANSFERASE 48 U/L (21-72); ALBUMIN 2.1 g/dL (3.5-5.0); ALKALINE PHOSPHATASE 152 U/L (38-126); ANION GAP 9 (5-19); ASPARTATE AMINO TRANSFERASE 40 U/L (17-59); BILIRUBIN,DIRECT 0.3 mg/dL (0.0-0.4); BILIRUBIN,TOTAL 0.6 mg/dL (0.2-1.3); BLOOD UREA NITROGEN 23 mg/dL (7-20); CALCIUM 8.5 mg/dL (8.4-10.2); CARBON DIOXIDE 22 mmol/L (22-30); CHLORIDE 107 mmol/L (98-107); CREATININE RESULT 1.24 mg/dL (0.52-1.25); GLUCOSE 97 mg/dL (75-110); MAGNESIUM 1.5 mg/dL (1.6-2.3); SODIUM 137.8 mmol/L (137-145); TOTAL PROTEIN 4.5 g/dL (6.3-8.2)
[2017-03-15 15:00] LABS: CREATINE KINASE < 20 U/L (55-170)
[2017-03-15 15:16] LABS: CREATINE KINASE MB 0.28 ng/mL (<4.55)
[2017-03-15 15:17] LABS: TROPONIN I < 0.012 ng/mL
[2017-03-15 16:18] VITALS: BP 100/55
--- NOTE | 2017-03-15 16:26 | EKG REPORT ---
SEVERITY:- OTHERWISE NORMAL ECG - SINUS TACHYCARDIA LOW VOLTAGE IN FRONTAL LEADS : Confirmed by: Tom Mccallum MD 15-Mar-2017 16:25:53
== END 2017-03-15 16:18 | disposition home or self-care (01) ==
LOC: ER 12:44
DX: J90 Pleural effusion, not elsewhere classified (principal); R91.8 Other nonspecific abnormal finding of lung field; I82.622 Acute embolism and thrombosis of deep veins of left upper extremity; D64.9 Anemia, unspecified; C34.90 Malignant neoplasm of unspecified part of unspecified bronchus or lung; R06.00 Dyspnea, unspecified; R06.02 Shortness of breath; M79.89 Other specified soft tissue disorders; J44.9 Chronic obstructive pulmonary disease, unspecified; I10 Essential (primary) hypertension; K21.9 Gastro-esophageal reflux disease without esophagitis; I48.91 Unspecified atrial fibrillation; Z86.718 Personal history of other venous thrombosis and embolism; Z88.0 Allergy status to penicillin; Z85.118 Personal history of other malignant neoplasm of bronchus and lung; Z87.891 Personal history of nicotine dependence; Z79.01 Long term (current) use of anticoagulants
CPT/HCPCS: 93005; 36591; 94640; 99285; 36415; 87040; 82553; 82550; 83735; 85025; 80053; 84484; 83880; 71010; 93010; J7620; J1642

== ENCOUNTER 2017-03-26 03:29 | Inpatient (IN) | payer MEDICAID ==
[2017-03-26] MEDS ORDERED: DILTIAZEM HCL INJ 25 MG/5 ML VIAL IV ONE (03:40)
[2017-03-26] MEDS ORDERED: DILTIAZEM HCL/D5W 125 ML IV PRN (03:40)
--- NOTE | 2017-03-26 03:47 | ER Document Report ---
ED Respiratory Problem - General Chief Complaint: Shortness Of Breath Stated Complaint: SHORTNESS OF BEATH Notes: The patient is a 56-year-old male, past medical history lung cancer (off chemo 2 weeks ago, hospice was discussed but not officially started), A. fib (on Diltiazem and Xarelto), presents with 12 hours of increasing shortness of breath and extremity swelling. He saw his primary care physician yesterday and he is not having any symptoms. He said that shortness of breath was worse when he is lying down or moving. EMS arrived and he was tripoding and in respiratory distress. He was started on CPAP and Nitropaste was applied to his chest. His respiratory status has improved on arrival to the emergency room. He was also found to be in A. fib RVR with heart rate of 150s. He was given 20 mg diltiazem and started on a diltiazem drip at 5 mg per hour. Patient denies chest pain, fevers, rash, leg pain, nausea, vomiting, abdominal pain or back pain. TRAVEL OUTSIDE OF THE [place] 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 Denies: Hx Cirrhosis, Hx Ulcer Musculoskeltal Medical History: Reports Hx Arthritis, Denies Hx Multiple Sclerosis, Reports Hx Musculoskeletal Trauma Psychiatric Medical History: Denies: Hx Bipolar Disorder, Hx Depression, Hx Schizophrenia - Immunizations Hx Diphtheria, Pertussis, Tetanus Vaccination: No Review of Systems - Review of Systems Notes: REVIEW OF SYSTEMS: CONSTITUTIONAL: -fevers, -chills EENT: -eye pain, -difficulty swallowing, -nasal congestion CARDIOVASCULAR: -chest pain, -syncope. RESPIRATORY: +cough, +SOB GASTROINTESTINAL: -abdominal pain, -nausea, -vomiting, -diarrhea GENITOURINARY: -dysuria, -hematuria MUSCULOSKELETAL: -back pain, -neck pain, +peripheral edema SKIN: -rash or skin lesions. HEMATOLOGIC: -easy bruising or bleeding. LYMPHATIC: -swollen, enlarged glands. NEUROLOGICAL: -altered mental status or loss of consciousness, -headache, - neurologic symptoms PSYCHIATRIC: -anxiety, -depression. ALL OTHER SYSTEMS REVIEWED AND NEGATIVE. Physical Exam - Vital signs Vitals: Temp 97.8 F 03/26/17 03:30 - Notes Notes: PHYSICAL EXAMINATION: GENERAL: In mild respiratory distress on CPAP HEAD: Atraumatic, normocephalic. EYES: Pupils equal round and reactive to light, extraocular movements intact, sclera anicteric, conjunctiva are normal. ENT: nares patent, oropharynx clear without exudates. Moist mucous membranes. NECK: Normal range of motion, supple without lymphadenopathy LUNGS: Tachypnea, mild respiratory distress, diffuse rhonchi and rales up to mid lungs, worse on right HEART: Irregularly irregular rhythm, tachycardia ABDOMEN: Soft, nontender, normoactive bowel sounds. No guarding, no rebound. No masses appreciated. EXTREMITIES: Normal range of motion. No cyanosis. 4+ pitting edema of arms and legs. Left upper extremity with a port. NEUROLOGICAL: Cranial nerves grossly intact. Normal speech, normal gait. Normal sensory, motor, and reflex exams. PSYCH: Normal mood, normal affect. SKIN: Warm, Dry, normal turgor, no rashes or lesions noted. Course - Re-evaluation Re-evalutation: On arrival to the emergency room, patient's respiratory status improved with CPAP by EMS. He was already given Nitropaste. Chest x-ray shows diffuse pulmonary edema. Lasix provided. Patient in A. fib w/ RVR. Another dose of diltiazem given and gtt continued at 20 mg/hr with improvement of his heart rate down to low 100s. Patient requires inpatient admission for further evaluation and treatment of his flash pulmonary edema and acute respiratory failure. Spoke to patient and he is lucid. He states that he is DO NOT INTUBATE, but he would like CPR if his heart was to stop. CXR shows worsening right pleural effusion. With leukocytosis that is new from last week, will cover for HCAP. Lactate is normal. Spoke to patient about his poor prognosis and he would still like to be admitted. 03/26/17 06:[address] Snyder and he has accepted patient as inpatient to ICU. Patient's heart rate is in the 80s and he is in no respiratory distress. His BP is 103/53 and diltiazem drip was decreased down to 15 mg per hour. - Vital Signs Vital signs: Temp Pulse Resp BP Pulse Ox 97.8 F 18 93/66 L 98 03/26/17 03:30 03/26/17 05:01 03/26/17 05:01 03/26/17 05:01 - Laboratory Result Diagrams: 03/26/17 04:30 03/26/17 04:30 Laboratory results interpreted by me: 03/26/17 03/26/17 03/26/17 04:30 04:30 04:30 WBC 11.9 H RBC 2.26 L Hgb 7.7 L Hct 22.4 L MCV 99 H D MCH 34.0 H RDW 22.7 H Carbonic Acid ABG pCO2 ABG pO2 ABG Total CO2 ABG O2 Saturation Sodium 136.5 L Carbon Dioxide 20 L BUN 31 H Creatinine 1.32 H Est GFR (Non-Af Amer) 56 L Glucose 117 H Direct Bilirubin 0.6 H Alkaline Phosphatase 150 H Creatine Kinase 21 L NT-Pro-B Natriuret Pep 1760 H Total Protein 4.8 L Albumin 2.3 L Lipase 18.3 L 03/26/17 04:30 WBC RBC Hgb Hct MCV MCH RDW Carbonic Acid 0.94 L ABG pCO2 31.1 L ABG pO2 61.8 L ABG Total CO2 21.9 L ABG O2 Saturation 93.0 L Sodium Carbon Dioxide BUN Creatinine Est GFR (Non-Af Amer) Glucose Direct Bilirubin Alkaline Phosphatase Creatine Kinase NT-Pro-B Natriuret Pep Total Protein Albumin Lipase - Diagnostic Test Radiology reviewed: Image reviewed, Reports reviewed Radiology results interpreted by me: CXR: Innumerable bilateral lung masses and nodules and worsened moderate right lower lobar opacity/fusion compared with prior exam, 03/15/2017. - EKG Interpretation by Me Rate: Tachycardia Rhythm: A.Fib Critical Care Note - Critical Care Note Total time excluding time spent on procedures (mins): 45 Discharge - Discharge Clinical Impression: Atrial fibrillation with RVR, Pleural effusion Respiratory failure with hypoxia Qualifiers: Chronicity: acute Qualified Code(s): J96.01 - Acute respiratory failure with hypoxia Anemia Qualifiers: Anemia type: unspecified type Qualified Code(s): D64.9 - Anemia, unspecified Condition: Serious Disposition: ADMITTED INPATIENT [facility] Admitted: ICU Referrals: KRISTEN ANNE MD [Primary Care Provider] - Follow up as needed
[2017-03-26 05:00] LABS: HEMATOCRIT 22.4 % (37.9-51.0); HGB HCT DIFFERENCE 0.7; MEAN CORPUSCULAR HGB CONC 34.3 g/dL (32.0-36.0); RED BLOOD COUNT 2.26 10^6/uL (4.35-5.55); RED CELL DISTRIBUTION WIDTH 22.7 % (11.5-14.0); WHITE BLOOD COUNT 11.9 10^3/uL (4.0-10.5)
[2017-03-26 05:04] LABS: ARTERIAL BLOOD BASE EXCESS -3.1 mmol/L
[2017-03-26 05:15] LABS: HEMOGLOBIN 7.7 g/dL (13.5-17.0)
[2017-03-26 05:17] LABS: ALANINE AMINOTRANSFERASE 40 U/L (21-72); ALBUMIN 2.3 g/dL (3.5-5.0); ALKALINE PHOSPHATASE 150 U/L (38-126); ANION GAP 10 (5-19); ASPARTATE AMINO TRANSFERASE 51 U/L (17-59); BILIRUBIN,DIRECT 0.6 mg/dL (0.0-0.4); BILIRUBIN,TOTAL 0.9 mg/dL (0.2-1.3); BLOOD UREA NITROGEN 31 mg/dL (7-20); CARBON DIOXIDE 20 mmol/L (22-30); CHLORIDE 107 mmol/L (98-107); CREATINE KINASE 21 U/L (55-170); CREATININE RESULT 1.32 mg/dL (0.52-1.25); GLUCOSE 117 mg/dL (75-110); LIPASE 18.3 U/L (23-300); MEAN CORPUSCULAR VOLUME 99 fl (80-97); POTASSIUM 4.4 mmol/L (3.6-5.0); SODIUM 136.5 mmol/L (137-145); TOTAL PROTEIN 4.8 g/dL (6.3-8.2)
[2017-03-26] MEDS ORDERED: VANCOMYCIN HCL INJ 1000 MG VIAL IV ONE (05:26)
[2017-03-26] MEDS ORDERED: CEFEPIME 1 GM/D5W RTU 50 ML IV ONE (05:26)
[2017-03-26] MEDS ORDERED: NORMAL SALINE 500 ML IV ONE (05:27)
[2017-03-26 05:31] LABS: TROPONIN I < 0.012 ng/mL
[2017-03-26] MEDS ORDERED: FENTANYL CITRATE INJ/PF 100 MCG/2 ML AMPUL IV ONE (05:42)
[2017-03-26] MEDS ORDERED: LORAZEPAM INJ 2 MG/1 ML VIAL IV ONE (05:42)
[2017-03-26] MEDS ORDERED: CEFEPIME 1 GM/D5W RTU 1 GM/50 ML RTUPB IV ONE (06:10)
[2017-03-26 06:19] LABS: BASOPHILS % (MANUAL) 0 % (0-2); EOSINOPHILS % (MANUAL) 0 % (0-6); LYMPHOCYTES % (MANUAL) 4 % (13-45); TOTAL CELLS COUNTED 100
[2017-03-26 06:23] LABS: ANISOCYTOSIS 3+; HYPOCHROMASIA 1+; OVALOCYTES 1+; POIKILOCYTOSIS 1+
[2017-03-26] MEDS ORDERED: FUROSEMIDE INJ/PF 40 MG/4 ML SDV IV ONE (10:00)
--- NOTE | 2017-03-26 11:12 | EKG REPORT ---
SEVERITY:- ABNORMAL ECG - ATRIAL FIBRILLATION, V-RATE 109-179 PROBABLE ANTEROSEPTAL INFARCT, AGE INDETERM BORDERLINE T ABNORMALITIES, INFERIOR LEADS : Confirmed by: Gerardo Shah 26-Mar-2017 11:11:42
[2017-03-26] MEDS ORDERED: FUROSEMIDE INJ/PF 40 MG/4 ML SDV IV SCH (14:00)
--- NOTE | 2017-03-26 18:22 | PDOC H&P ---
History of Present Illness Admission Date/PCP: 03/26/17 06:43 KRISTEN ANNE MD Oncologist: Radha Patient complains of: Shortness of breath History of Present Illness: The patient is a 56-year-old -Welsh male, with a past medical history of stage IV lung cancer (off chemo 2 weeks ago, hospice was discussed but not officially started), A. fib (on Diltiazem and Xarelto), presents with 12 hours of increasing shortness of breath and extremity swelling. The patient was seen by his primary care physician yesterday and he is not having any symptoms. He said that shortness of breath was worse when he is lying down or moving. EMS arrived and he was tripoding and in respiratory distress. He was started on CPAP and Nitropaste was applied to his chest. His respiratory status has improved on arrival to the emergency room. He was also found to be in A. fib RVR with heart rate of 150s. He was given 20 mg diltiazem and started on a diltiazem drip at 5 mg per hour. Patient was referred to the hospitalist remission and management. Upon my assessment of the patient was found to be minimally responsive with BiPAP in place. The patient in comparison to 2 weeks ago when I saw him last had deteriorated dramatically. The patient was noted have full anasarca with rales and grimacing. The patient is noted to have multiple organ failure including heart failure, renal failure, and respiratory failure. I called and spoke with the patient's brother Christ Rodriguez at [phone] is his surrogate decision maker and is agreed to come in to discuss the patient's condition and prognosis. Past Medical History Cardiac Medical History: Reports: Atrial Fibrillation, DVT - Left subclavian and brachialis vein, Hypertension Pulmonary Medical History: Reports: Bronchitis, Chronic Obstructive Pulmonary Disease (COPD) Malignancy Medical History: Reports: Lung Cancer GI Medical History: Reports: Gastroesophageal Reflux Disease Musculoskeltal Medical History: Reports: Arthritis Hematology: Reports: Anemia, Bleeding Tendencies Past Surgical History Past Surgical History: Reports: None Social History Information Source: Patient, Relative, [facility] Records Lives with: Family Smoking Status: Former Smoker Frequency of Alcohol Use: None Hx Recreational Drug Use: Yes Drugs: Marijuana Hx Prescription Drug Abuse: No - Advance Directive Resuscitation Status: Do Not Resuscitate Surrogate healthcare decision maker:: Brother Christ Rodriguez Family History Family History: Reviewed & Not Pertinent, CVA, Malignancy Parental Family History Reviewed: Yes Children Family History Reviewed: NA Sibling(s) Family History Reviewed.: Yes Medication/Allergy Home Medications: Albuterol Sulfate [Proair HFA Inhalation Aerosol 8.5 gm MDI] 1 puff IH Q4H 03/26 Diltiazem HCl [Diltiazem 24Hr ER] 240 mg PO DAILY 03/26/17 Lorazepam [Ativan 1 mg Tablet] 1 mg PO Q8HP PRN 03/26/17 Morphine Sulfate [Morphine Sulfate ER] 15 mg PO Q12 03/26/17 Ondansetron HCl [Zofran 4 mg Tablet] 8 mg PO Q8HP PRN 03/26/17 Oxycodone HCl [Oxy-Ir 5 mg Tablet] 5 mg PO Q6HP PRN 03/26/17 Rivaroxaban [Xarelto 15 mg Tablet] 15 mg PO Q12 03/26/17 Allergies/Adverse Reactions: Penicillins Adverse Reaction (Verified 03/26/17 04:19) Review of Systems ROS unobtainable: Due to mental status Physical Exam Vital Signs: Temp Pulse Resp BP Pulse Ox 97.7 F 21 H 112/71 96 03/26/17 07:00 03/26/17 11:36 03/26/17 11:20 03/26/17 11:38 General appearance: PRESENT: disheveled, severe distress, thin. ABSENT: no acute distress, well-nourished Head exam: PRESENT: atraumatic, normocephalic Eye exam: PRESENT: conjunctiva pale, EOMI, PERRLA. ABSENT: scleral icterus Ear exam: PRESENT: normal external ear exam Mouth exam: PRESENT: moist, tongue midline - BiPAP mask in place, other Neck exam: PRESENT: JVD - To the right ear, lymphadenopathy. ABSENT: thyromegaly, tracheal deviation, tracheostomy Respiratory exam: PRESENT: rales - Throughout, symmetrical, tachypnea. ABSENT: rhonchi, unlabored, wheezes Cardiovascular exam: PRESENT: irregular rhythm. ABSENT: diastolic murmur, rubs , systolic murmur Pulses: PRESENT: +1 pedal pulses bilateral Vascular exam: PRESENT: pallor GI/Abdominal exam: PRESENT: normal bowel sounds, soft. ABSENT: distended, guarding, mass, organolmegaly, rebound, tenderness Rectal exam: PRESENT: deferred Extremities exam: PRESENT: pedal edema, +2 edema. ABSENT: calf tenderness, clubbing Neurological exam: PRESENT: altered Skin exam: PRESENT: cyanosis, dry, intact, mottled, pallor. ABSENT: rash, warm Results Laboratory Results: Labs- Last Values WBC 11.9 10^3/uL (4.0-10.5) H 03/26/17 04:30 RBC 2.26 10^6/uL (4.35-5.55) L 03/26/17 04:30 Hgb 7.7 g/dL (13.5-17.0) L 03/26/17 04:30 Hct 22.4 % (37.9-51.0) L 03/26/17 04:30 MCV 99 fl (80-97) H D 03/26/17 04:30 MCH 34.0 pg (27.0-33.4) H 03/26/17 04:30 MCHC 34.3 g/dL (32.0-36.0) 03/26/17 04:30 RDW 22.7 % (11.5-14.0) H 03/26/17 04:30 Plt Count 251 10^3/uL (150-450) 03/26/17 04:30 Total Counted 100 03/26/17 04:30 Seg Neutrophils % Not Reportable 03/26/17 04:30 Seg Neuts % (Manual) 94 % (42-78) H 03/26/17 04:30 Lymphocytes % Not Reportable 03/26/17 04:30 Lymphocytes % (Manual) 4 % (13-45) L 03/26/17 04:30 Monocytes % Not Reportable 03/26/17 04:30 Monocytes % (Manual) 2 % (3-13) L 03/26/17 04:30 Eosinophils % Not Reportable 03/26/17 04:30 Eosinophils % (Manual) 0 % (0-6) 03/26/17 04:30 Basophils % Not Reportable 03/26/17 04:30 Basophils % (Manual) 0 % (0-2) 03/26/17 04:30 Absolute Neutrophils Not Reportable 03/26/17 04:30 Abs Neuts (Manual) 11.2 10^3/uL (1.7-8.2) H 03/26/17 04:30 Absolute Lymphocytes Not Reportable 03/26/17 04:30 Abs Lymphs (Manual) 0.5 10^3/uL (0.5-4.7) 03/26/17 04:30 Absolute Monocytes Not Reportable 03/26/17 04:30 Abs Monocytes (Manual) 0.2 10^3/uL (0.1-1.4) 03/26/17 04:30 Absolute Eosinophils Not Reportable 03/26/17 04:30 Absolute Eos (Manual) 0.0 10^3/uL (0.0-0.6) 03/26/17 04:30 Absolute Basophils Not Reportable 03/26/17 04:30 Abs Basophils (Manual) 0.0 10^3/uL (0.0-0.2) 03/26/17 04:30 Hypersegmented Neuts PRESENT 03/26/17 04:30 Platelet Comment ADEQUATE 03/26/17 04:30 Hypochromasia 1+ 03/26/17 04:30 Poikilocytosis 1+ 03/26/17 04:30 Anisocytosis 3+ 03/26/17 04:30 Macrocytosis SLIGHT 03/26/17 04:30 Ovalocytes 1+ 03/26/17 04:30 Carbonic Acid 0.94 mmol/L (1.05-1.35) L 03/26/17 04:30 HCO3/H2CO3 Ratio 22:1 03/26/17 04:30 ABG pH 7.45 (7.35-7.45) 03/26/17 04:30 ABG pCO2 31.1 mmHg (35-45) L 03/26/17 04:30 ABG pO2 61.8 mmHg (80-100) L 03/26/17 04:30 ABG HCO3 21.0 mmol/L (20-26) 03/26/17 04:30 ABG Total CO2 21.9 mmol/L (23-27) L 03/26/17 04:30 ABG O2 Saturation 93.0 % (94-98) L 03/26/17 04:30 ABG Base Excess -3.1 mmol/L 03/26/17 04:30 FiO2 50% 03/26/17 04:30 Sodium 136.5 mmol/L (137-145) L 03/26/17 04:30 Potassium 4.4 mmol/L (3.6-5.0) 03/26/17 04:30 Chloride 107 mmol/L (98-107) 03/26/17 04:30 Carbon Dioxide 20 mmol/L (22-30) L 03/26/17 04:30 Anion Gap 10 (5-19) 03/26/17 04:30 BUN 31 mg/dL (7-20) H 03/26/17 04:30 Creatinine 1.32 mg/dL (0.52-1.25) H 03/26/17 04:30 Est GFR ( Amer) > 60 (>60) 03/26/17 04:30 Est GFR (Non-Af Amer) 56 (>60) L 03/26/17 04:30 Glucose 117 mg/dL (75-110) H 03/26/17 04:30 Lactic Acid 1.1 mmol/L (0.7-2.1) 03/26/17 04:30 Calcium 9.0 mg/dL (8.4-10.2) 03/26/17 04:30 Total Bilirubin 0.9 mg/dL (0.2-1.3) 03/26/17 04:30 Direct Bilirubin 0.6 mg/dL (0.0-0.4) H 03/26/17 04:30 Indirect Bilirubin Not Reportable 03/26/17 04:30 Neonat Total Bilirubin Not Reportable 03/26/17 04:30 AST 51 U/L (17-59) 03/26/17 04:30 ALT 40 U/L (21-72) 03/26/17 04:30 Alkaline Phosphatase 150 U/L (38-126) H 03/26/17 04:30 Creatine Kinase 21 U/L (55-170) L 03/26/17 04:30 Troponin I < 0.012 ng/mL 03/26/17 04:30 NT-Pro-B Natriuret Pep 1760 pg/mL (5-900) H 03/26/17 04:30 Total Protein 4.8 g/dL (6.3-8.2) L 03/26/17 04:30 Albumin 2.3 g/dL (3.5-5.0) L 03/26/17 04:30 Lipase 18.3 U/L (23-300) L 03/26/17 04:30 Impressions: Chest X-Ray 03/26/17 03:40 IMPRESSION: Progressive malignancy pattern. Cannot exclude superimposed pneumonia. Assessment & Plan - Diagnosis (1) Metastatic lung cancer (metastasis from lung to other site) Qualifiers: Laterality: unspecified laterality Qualified Code(s): C34.90 - Malignant neoplasm of unspecified part of unspecified bronchus or lung Is this a current diagnosis for this admission?: YesPlan: Hospice was recommended by oncology a few weeks ago. The patient and the family have had time to discuss this and have elected to proceed with hospice measures. Patient will be admitted, given comfort measures as well as diuresis and will meet with hospice provider. I have contacted Brianna the hospice community liaison. At this point family is leaning to go home in the morning with hospice of the bed can be delivered. If family decides to seek inpatient care I do feel the patient would qualify for this at it does appears his is near. (2) Atrial fibrillation with RVR Is this a current diagnosis for this admission?: YesPlan: The patient's rate is better controlled however blood pressure is getting significantly low. Family has elected to proceed with comfort measures. (3) Cardiogenic shock Is this a current diagnosis for this admission?: YesPlan: Cold and wet profile for cardiogenic shock. Patient has hypertension, anasarca and anxiety. Will diurese the patient for his comfort. (4) Pleural effusion Is this a current diagnosis for this admission?: YesPlan: Secondary to hypoalbuminemia and malignant effusion (5) Acute on chronic respiratory failure with hypoxemia Is this a current diagnosis for this admission?: YesPlan: Secondary to the above. Continue BiPAP and/or nasal cannula for patient's comfort. (6) Anasarca Is this a current diagnosis for this admission?: YesPlan: Will attempt to diurese for comfort. However given the patient's poor kidney function as well as third spacing may not be efficacious. (7) Left upper extremity deep vein thrombosis Qualifiers: Affected thrombotic vein of extremity: axillary Chronicity: acute Qualified Code(s): I82.A12 - Acute embolism and thrombosis of left axillary vein Is this a current diagnosis for this admission?: YesPlan: Will continue meds for patient's comfort (8) Thrombocytopenia Is this a current diagnosis for this admission?: Yes (9) Anemia of chronic disease Is this a current diagnosis for this admission?: Yes (10) Malnutrition Is this a current diagnosis for this admission?: Yes - Time Time Spent: 50 to 70 Minutes Medications reviewed and adjusted accordingly: Yes Anticipated discharge: Hospice Within: when bed available Disposition: The patient is a DO NOT RESUSCITATE DO NOT INTUBATE comfort care measures only. Pending patient's symptomatology and diagnostic findings will reevaluate as needed.
[2017-03-26] MEDS: MORPHINE SULFATE 10 MG/ML INJ IV PRN ×2 (20:05→22:14)
[2017-03-26 21:59] VITALS: BP 110/73
[2017-03-26] MEDS: RIVAROXABAN 15 MG TABLET PO SCH (22:16)
--- NOTE | 2017-03-27 09:15 | PDOC DISCHARGE SUMMARY ---
General - Admit/Disc Date/PCP Admission Date/Primary Care Provider: 03/26/17 06:43 KRISTEN ANNE MD Discharge Date: 03/27/17 - As soon as hospice services have been set up - Discharge Diagnosis (1) Acute on chronic respiratory failure with hypoxemia Is this a current diagnosis for this admission?: Yes (2) Anasarca Is this a current diagnosis for this admission?: Yes (3) Anemia of chronic disease Is this a current diagnosis for this admission?: Yes (4) Atrial fibrillation with RVR Is this a current diagnosis for this admission?: Yes (5) Cardiogenic shock Is this a current diagnosis for this admission?: Yes (6) Malnutrition Is this a current diagnosis for this admission?: Yes (7) Pleural effusion Is this a current diagnosis for this admission?: Yes (8) Left upper extremity deep vein thrombosis Is this a current diagnosis for this admission?: Yes - Additional Information Resuscitation Status: Comfort Measures Only - A Home Medications: Albuterol Sulfate [Proair HFA Inhalation Aerosol 8.5 gm MDI] 1 puff IH Q4H 03/26 Diltiazem HCl [Diltiazem 24Hr ER] 240 mg PO DAILY 03/26/17 Lorazepam [Ativan 1 mg Tablet] 1 mg PO Q8HP PRN 03/26/17 Morphine Sulfate [Morphine Sulfate ER] 15 mg PO Q12 03/26/17 Ondansetron HCl [Zofran 4 mg Tablet] 8 mg PO Q8HP PRN 03/26/17 Oxycodone HCl [Oxy-Ir 5 mg Tablet] 5 mg PO Q6HP PRN 03/26/17 Rivaroxaban [Xarelto 15 mg Tablet] 15 mg PO Q12 03/26/17 History of Present Illness History of Present Illness: The patient is an unfortunate 56-year-old -[place] male with a past medical history significant for stage IV little lung cancer. His functional status is not good enough for further therapy. In addition he has atrial fibrillation, chronic respiratory failure and a left upper extremity DVT. He presented to the emergency room with worsening shortness of breath and lower extremity swelling. The patient in the emergency room was found to have atrial fibrillation with rapid ventricular response. He was given 20 mg of IV diltiazem and initially started on a diltiazem drip. The patient was initially on BiPAP support. Discussions were had with the patient's family. His surrogate decision maker is Christ Rodriguez. After discussions with the patient' s family decision has been made to pursue hospice services. No further aggressive therapy will be pursued. Her discharge planners are working on setting up home hospice and will contact the family later today. He will be discharged home with home hospice as soon as the arrangements been made. Physical Exam Vital Signs: Temp Pulse Resp BP Pulse Ox 98.4 F 123 H 18 110/73 96 03/26/17 21:14 03/26/17 21:14 03/26/17 21:14 03/26/17 21:14 03/26/17 21:14 General appearance: PRESENT: mild distress, thin Head exam: PRESENT: atraumatic, normocephalic Mouth exam: PRESENT: moist Teeth exam: PRESENT: poor dentation Respiratory exam: PRESENT: accessory muscle use, crackles, tachypnea Cardiovascular exam: PRESENT: irregular rhythm GI/Abdominal exam: PRESENT: hypoactive bowel sounds, soft Rectal exam: PRESENT: deferred Extremities exam: PRESENT: pedal edema, tenderness, +2 edema Neurological exam: PRESENT: alert, awake, oriented to person, oriented to time, oriented to situation Psychiatric exam: PRESENT: anxious Results Impressions: Chest X-Ray 03/26/17 03:40 IMPRESSION: Progressive malignancy pattern. Cannot exclude superimposed pneumonia. Plan Discharge Plan: The patient will be discharged home with home hospice services as soon as the appropriate arrangements been made by discharge planning. Time Spent: Greater than 30 Minutes
[2017-03-27] MEDS ORDERED: (PENDING PHARMACY ID) (Diltiazem Hcl [Diltiazem 24hr Er] 240 MG) PO SCH (10:00)
[2017-03-27] MEDS ORDERED: DILTIAZEM HCL 240 MG CAPSULE.CR PO SCH (10:00)
[2017-03-27] MEDS: MORPHINE SULFATE 10 MG/ML INJ IV PRN ×6 (11:27→20:16)
[2017-03-27] MEDS: RIVAROXABAN 15 MG TABLET PO SCH ×2 (11:28→21:45)
[2017-03-27] MEDS ORDERED: FUROSEMIDE INJ/PF 100 MG/10 ML SDV ONE (11:38)
[2017-03-27] MEDS: LORAZEPAM INJ 2 MG/1 ML VIAL IV PRN ×2 (11:49→16:42)
[2017-03-27] MEDS ORDERED: FUROSEMIDE INJ/PF 20 MG/2 ML SDV IV ONE (12:00)
--- NOTE | 2017-03-27 22:44 | Palliative Consultation Report ---
Consultation From:: DEO WALKER - [facility] Chief Complaint: Palliative Care Consult, Comfort Care HPI: Palliaitve Care Consult VIsit: 11:45- 12:00 and 12:15-12:35PM 03/27/17 Appreciate palliativecare consult for this unfortunate 56 year old man who appears to be actively dying with end stage lung cancer. Mr. Mendez is on comfort measures per family and patient request. At my first attempt to visit, patient was alone in his room, struggling to breath and very anxious. He had very wet breath sounds and severe edema of all extremities. His nurse gave him morphine and lasix and we repositioned him. I came back in a few minutes to meet with his brother. Mr. Mendez was resting comfortably. He was asleep but breathing with less stress and not agitated. His brother states that he wants to keep him comfortable like this. He said the hospitalist mentioned a morhine drip and I agreed this would be a good idea. We discussed the lasix and ho w it will help him feel more comfortable and allow him to breath better. Brother is aware that patients time is very limited. He is very realistic but wants to honor patients wishes. Options of hospice care center, hospice at home or continued care at hospital discussed. Brother would like to take patient home as this is patients wish. I told him that may be possible and said they have been working with [facility], so they would probably stay with this company of hospice. I explained how hospice works, that they do not provide around the clock coverage but can help with medicaitons, educating family to care for patient, and getting meds and supplies as well as help with bathing, etc. Nurse available for visits and electrician control equipment assistance. He did not want patient to go to [facility]. We discussed that patient may not be stable enough to transport o home. His broithers are meeting with him tonight to discuss care for Mr. Mendez. I gave him my cell number in case they had any questions. Patient remained asleep and breathing more easily during my visit and conversation. Onset: Last week Onset/Duration: Gradual Quality of Pain: Fullness Severity: Moderate Associated Symptoms: Leg swelling, Shortness of breath, Weakness Exacerbated by: Movement Relieved by: Other - Medications Past Medical History(Consults) - General Information Source: Relative, [facility] Records Home Medications: Albuterol Sulfate [Proair HFA Inhalation Aerosol 8.5 gm MDI] 1 puff IH Q4H 03/26 Lorazepam [Ativan 1 mg Tablet] 1 mg PO Q8HP PRN 03/26/17 Morphine Sulfate [Morphine Sulfate ER] 15 mg PO Q12 03/26/17 Ondansetron HCl [Zofran 4 mg Tablet] 8 mg PO Q8HP PRN 03/26/17 Oxycodone HCl [Oxy-Ir 5 mg Tablet] 5 mg PO Q6HP PRN 03/26/17 Diltiazem HCl [Cardizem Cd 240 mg Capsule.cr] 240 mg PO DAILY capsule.cr Morphine Sulfate [Roxanol] 5 mg SL Q1H PRN #30 ml 03/27/17 Rivaroxaban [Xarelto 15 mg Tablet] 15 mg PO Q12 tablet 03/27/17 Allergies/Adverse Reactions: Penicillins Adverse Reaction (Verified 03/26/17 04:19) - Social History Lives with: Family Family History: Reviewed & Not Pertinent, CVA, Malignancy Parental Family History Reviewed: No Children Family History Reviewed: No Sibling(s) Family History Reviewed.: No Smoking Status: Former Smoker Frequency of Alcohol Use: None Hx Recreational Drug Use: Yes Drugs: Marijuana Hx Prescription Drug Abuse: No - Past Medical History Cardiac Medical History: Reports: Hx Atrial Fibrillation, 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 Denies: Hx Cirrhosis, Hx Ulcer Musculoskeltal Medical History: Reports Hx Arthritis, Denies Hx Multiple Sclerosis, Reports Hx Musculoskeletal Trauma Psychiatric Medical History: Denies: Hx Bipolar Disorder, Hx Depression, Hx Schizophrenia Hematology: Reports: Anemia, Bleeding Tendencies - Surgical History Surgical Hx: Negative Past Surgical History: Reports: None Review of systems ROS unobtainable: due to mental statu Ojective:Exam Vital Signs: Temp Pulse Resp BP Pulse Ox 98.4 F 123 H 18 110/73 96 03/26/17 21:14 03/26/17 21:14 03/26/17 21:14 03/26/17 21:14 03/26/17 21:14 Intake & Output 03/26/17 03/27/17 03/28/17 06:59 06:59 06:59 Intake Total 355 Output Total 750 Balance -395 - General In distress: Mild - Severe distress improved with dose morphine - HEENT Head: Normocephalic Eyes: Pale conjunctiva Conjunctiva: Normal Pupils: PERRLA - Respiratory Respiratory Status: Respiratory distress Chest Status: Accessory muscle use Breath sounds: Rales, Decreased air movement, Productive cough - Cardiovascular Pulses: Normal: Radial - rapid pulse, rate 100 before meds - Extremities Upper extremity: Edema Lower extremities: Edema Hand: Swelling - Neurological Cognition: Other - very anxious Orientation: Oriented to person - Psychological Associated symptoms: Agitated, Anxious - Skin Skin Temperature: Warm Skin Moisture: Diaphoretic Skin Turgor: Tight, Edematous Plan and Recommendation Plan and Recommendation: As above....patient appears to be near from symptoms. Brothers are interested in taking him home with hospice but want to discuss between them laer today. Patietn may be better served to stay in hospital where symptoms can be managed easily, but they do agree to have hospice help them care for patient at home. They have already had [facility] and will want to stay with [facility] for hospice support. I will visit toimorrow. Appreciate opportunity to assist with care. Appreciate care being given to patient. Recommendations: Continuous morphine IV at 2 mg per hour with 2 mg bolus q 1 hour prn pain or dyspnea. Lorazapam 1 mg q 2 hours prn anxiety Continue lasix as needed for edema and rales Nash catheter for comfort. - Time Spent with Patient Time spent with patient: 15 to 30 Minutes - 35 min with patient and his brother , 50 min total with chart review and consultation.
--- NOTE | 2017-03-28 09:23 | Death Summary ---
Summary Date : 03/27/17 Time of :: 21:00 Autopsy: No Resuscitation Status: Comfort Measures Only Primary Care Provider: Mike Loyola MD - Final Diagnosis (1) Acute on chronic respiratory failure with hypoxemia Is this a current diagnosis for this admission?: Yes (3) Atrial fibrillation with RVR Is this a current diagnosis for this admission?: Yes (4) Anasarca Is this a current diagnosis for this admission?: Yes (5) Pleural effusion Is this a current diagnosis for this admission?: Yes (6) Cardiogenic shock Is this a current diagnosis for this admission?: Yes (7) Anemia of chronic disease Is this a current diagnosis for this admission?: Yes (8) Malnutrition Is this a current diagnosis for this admission?: Yes (9) Left upper extremity deep vein thrombosis Is this a current diagnosis for this admission?: Yes Hospital Course:: The patient was a 56-year-old -[place] male with a past medical history significant for stage IV lung cancer. His last chemotherapy was 2 weeks prior to admission and it was not felt that his functional status was good enough for further therapy. He presented to the emergency room with increased shortness of breath and was found to have atrial fibrillation with rapid ventricular response. Discussions were had with the family at the time of admission and they opted for no further aggressive therapy. They wanted the patient to be made comfortable and to go home with home hospice services. The discharge planners were working on setting up home hospice at home and he was to be discharged home the next day. However at 9 PM on 03/27/2017 the patient peacefully with his family at bedside. He was kept comfortable during this hospitalization with IV morphine and IV Ativan.
== END 2017-03-27 23:00 | disposition left against medical advice (07) | DRG 189 ==
LOC: ER 03:29 → EH 06:43 → 4W 21:05
PROVIDERS: ADMIT Family Medicine; ATTEND Family Medicine
PROC: 5A09457 Assistance with Respiratory Ventilation, 24-96 Consecutive Hours, Continuous Positive Airway Pressure (ICD-10-PCS; principal; 2017-03-26)
DX: J96.21 Acute and chronic respiratory failure with hypoxia (principal); C34.90 Malignant neoplasm of unspecified part of unspecified bronchus or lung; C79.9 Secondary malignant neoplasm of unspecified site; J91.0 Malignant pleural effusion; E46 Unspecified protein-calorie malnutrition; I82.722 Chronic embolism and thrombosis of deep veins of left upper extremity; N17.9 Acute kidney failure, unspecified; Z51.5 Encounter for palliative care; I48.91 Unspecified atrial fibrillation; D63.8 Anemia in other chronic diseases classified elsewhere; I10 Essential (primary) hypertension; K21.9 Gastro-esophageal reflux disease without esophagitis; M19.90 Unspecified osteoarthritis, unspecified site; Z66 Do not resuscitate; Z68.29 Body mass index [BMI] 29.0-29.9, adult; Z88.0 Allergy status to penicillin; Z87.891 Personal history of nicotine dependence; Z92.21 Personal history of antineoplastic chemotherapy; Z79.899 Other long term (current) drug therapy; R57.0 Cardiogenic shock; J44.9 Chronic obstructive pulmonary disease, unspecified; F41.9 Anxiety disorder, unspecified; D69.59 Other secondary thrombocytopenia; R60.1 Generalized edema
CPT/HCPCS: 36415; 71010; 80048; 80076; 82550; 82803; 83605; 83690; 83880; 84484; 85025; 87040; 93005; 93010; 94660; J1940; J2060; J2270; J3010; J3370; J3490; J7040